=== PATIENT | female | born 1995 | race Caucasian/White ===

== ENCOUNTER 2020-07-01 17:04 | Outpatient (CLI) | payer BC, SELFPAY ==
[2020-07-01 17:55] LABS: Beta HCG Quantitative < 2.39 mIU/ML
== END 2020-07-01 17:05 | disposition home or self-care (01) ==
LOC: ANHLAB 17:09
PROVIDERS: PCP Family Medicine; Visit Provider Obstetrics & Gynecology
DX: O20.0 Threatened abortion (principal); Z3A.00 Weeks of gestation of pregnancy not specified
CPT/HCPCS: 36415; 84702; 85461

== ENCOUNTER 2020-12-12 09:01 | Outpatient (CLI) | payer BC, SELFPAY ==
--- NOTE | ~2020-12-12 | US_ITS ---
EXAMINATION: US retroperitoneal comp EXAM DATE: 12/12/2020 09:40 INDICATION: Flank pain, hx of urinary calculi. UTI symptoms Flank pain in . TECHNIQUE: Multiple grayscale and Doppler images of the kidneys were obtained (by a technologist who performed the scan) and subsequently reviewed. There is no prior study for comparison. FINDINGS: Right kidney: There is normal contour and echogenicity. It measures 10.9 x 5.2 x 4.7 centimeters. Hy perechoic focus was measured in the hilar region at 9 mm, but there is no posterior shadowing to conf irm that this is a stone, could just be echogenic renal perihilar fat There is no hydronephrosis. Left kidney: There is normal contour and echogenicity. It measures 10.7 x 5.3 x 6.5 centimeters. Foc us with similar imaging characteristics to the contralateral findings measuring 4 mm. There is no h ydronephrosis. Bladder unremarkable. IMPRESSION: 1. Nonobstructing stone in each kidney versus echogenic perihilar fat. 2. No hydronephrosis. Reviewed, dictated and finalized at location A.
== END 2020-12-12 09:02 | disposition home or self-care (01) ==
LOC: ANHIMG 09:05
PROVIDERS: PCP Family Medicine; Visit Provider Advanced Practice Midwife
DX: R10.9 Unspecified abdominal pain (principal); N20.0 Calculus of kidney
CPT/HCPCS: 76770

== ENCOUNTER 2021-02-18 11:46 | Outpatient (CLI) | payer BC, SELFPAY ==
[2021-02-18 12:16] VITALS: BP 153/83; PULSE 87
[2021-02-18 12:25] LABS: Basophils Percent Auto 0.3 % (0.2-1.2); Eosinophils Absolute Auto 0.2 K/mm3 (0-0.3); Eosinophils Percent Auto 1.3 % (0-4.4); Hematocrit 26.9 % (37.0-47.0); Hemoglobin 8.8 g/dL (12.0-15.0); Immature Granulocyte Absolute 0.15 K/mm3 (0.00-0.031); Immature Granulocyte Percent A 1.3 % (0-0.5); Lymphocytes Absolute Auto 1.45 K/mm3 (0.9-3.2); Lymphocytes Percent Auto 12.3 % (18.3-44.2); Mean Corpuscular HGB Conc 32.7 g/dl (32-36); Mean Corpuscular Hemoglobin 26.5 pg (26-34); Mean Platelet Volume 9.5 fl (7.4-10.4); Monocytes Absolute Auto 0.6 K/mm3 (0.1-0.6); Monocytes Percent Auto 5.1 % (2.6-8.5); Neutrophils Absolute Auto 9.4 K/mm3 (1.3-6.7); Neutrophils Percent Auto 79.7 % (45.5-73.1); Platelet Count Result 154 k/mm3 (150-375); Red Blood Count 3.32 M/mm3 (4.2-5.4); Red Cell Distribution Width 14.5 % (11.5-14.5); White Blood Count 11.8 K/mm3 (4.5-10.0)
[2021-02-18 12:31] VITALS: BP 152/79; PULSE 84
[2021-02-18 12:31] LABS: Add Urine Microscopic? YES; Appearance Urine Cloudy (Clear); Bacteria Urine 1+ /hpf; Bilirubin Urine Negative (Negative); Blood Urine 1+ (Negative); Color Urine Yellow (Yellow); Glucose Urine UA Negative (Negative); Ketones Urine Negative (Negative); Leukocyte Esterase Ur 3+ LEU/UL (NEGATIVE); Mucus Urine Rare /lpf; Nitrate Urine Negative (Negative); Protein Urine Negative (Negative); Squamous Epithelial Cell Urine Many /hpf (Few); Urobilinogen Urine Negative mg/dL (<2.0); WBC Urine 51-75 /hpf (0-3)
[2021-02-18 12:38] LABS: Alanine Aminotransferase 15 U/L (4-35); Albumin Level 3.5 g/dL (3.5-5.1); Alkaline Phosphatase 103 U/L (38-126); Anion Gap 9 mmol/L (8-16); Aspartate Amino Transferase 20 U/L (14-36); Bilirubin,Total 0.3 mg/dL (0.2-1.3); Blood Urea Nitrogen 6 mg/dL (7-17); Calcium 9.2 mg/dL (8.4-10.2); Carbon Dioxide 20 mmol/L (22-30); Chloride 108 mmol/L (98-107); Estimated Glomerular Filt Rate > 60; Glucose 86 mg/dL (65-110); Potassium 3.6 mmol/L (3.4-5.0); Sodium 137 mmol/L (137-145); Uric Acid 4.8 mg/dL (2.5-7.5)
[2021-02-18 12:44] LABS: Creatinine Urine 22.6 mg/dL; Total Protein Urine Random 16 mg/dL; Ur Ttl Prot Creatinine Ratio 0.71 mg/mg (0-0.20)
[2021-02-18 12:46] VITALS: BP 144/77; PULSE 83
[2021-02-18 12:53] LABS: Specific Grav Ur 1.002 (1.001-1.035)
--- NOTE | 2021-02-18 13:21 | PC.NURSE ---
1256- Spoke with Dr. James, NST, BPs' and labs reviewed. Orders to discharge patient home with 24 hour urine. Modified bed rest until Dr. James speaks to her regarding results.
== END 2021-02-18 13:30 | disposition home or self-care (01) ==
LOC: ANHOBOP 11:51 → ANHOBPP 11:52
PROVIDERS: PCP Family Medicine; Visit Provider Obstetrics & Gynecology
DX: O13.3 Gestational [pregnancy-induced] hypertension without significant proteinuria, third trimester (principal); Z3A.33 33 weeks gestation of pregnancy
CPT/HCPCS: 36415; 59025; 80053; 81001; 82570; 84156; 84550; 85025; 87086; 99199

== ENCOUNTER 2021-02-19 13:26 | Outpatient (NON) | payer BC, SELFPAY ==
[2021-02-19 13:32] VITALS: BMI 42.3
[2021-02-19 14:52] LABS: Collection Time Urine 24 HOURS
[2021-02-19 14:53] LABS: Total Volume 24 Hour Urine 2500 ml
[2021-02-19 14:54] LABS: Patient Weight 254 Lbs
[2021-02-19 15:09] LABS: Creatinine Clearance Urine 111.3 ml/min (75-125); Creatinine Urine 64.7 mg/dL; Total Protein Urine 24 Hr 375 mg/24hr (28-141); Total Protein Urine Random 15 mg/dL
== END 2021-02-19 13:27 | disposition home or self-care (01) ==
LOC: ANHOBOP 13:28
PROVIDERS: PCP Family Medicine; Visit Provider Obstetrics & Gynecology
DX: O13.9 Gestational [pregnancy-induced] hypertension without significant proteinuria, unspecified trimester (principal)
CPT/HCPCS: 81050; 82575; 84156

== ENCOUNTER 2021-02-21 14:51 | Outpatient (RCR) | payer BC, SELFPAY ==
[2021-02-20] MEDS: BETAMETHASONE SOD PHOS/ACETATE 30 MG/5 ML VIAL 12 MG IM (14:48)
[2021-02-21] MEDS: BETAMETHASONE SOD PHOS/ACETATE 30 MG/5 ML VIAL 12 MG IM (14:59)
== END 2021-02-21 15:00 | disposition home or self-care (01) ==
LOC: ANHOBOP 14:51
PROVIDERS: PCP Family Medicine; Visit Provider Obstetrics & Gynecology
DX: O16.9 Unspecified maternal hypertension, unspecified trimester (principal); Z3A.00 Weeks of gestation of pregnancy not specified
CPT/HCPCS: 96372; J0702

== ENCOUNTER 2021-02-21 14:51 | Outpatient (CLI) | payer BC, SELFPAY ==
--- NOTE | 2021-02-21 15:28 | PC.NURSE ---
Dr. James informed when pt came in for her 2nd Celestone injection she informed me she has had a headache since 1245 today that she took Tylenol 1 gm po at 1315 for with no improvement in headache- pt describes it as a dull ache that she rates as a 4-5 out of 10. Pt denies visual disturbance, feels some intermittent epigastric tenderness- but she has felt that during the last trimester. DTR's 2+ and no clonus. 1+ pitting edema in lower legs. Initial BP was 144/78 and repeat was 135/62. Discussed pt had labs on 02/18/21. Order received for NST and to give Fioricet. Pt may go home if the Fioricet helps her headache.
[2021-02-21 15:30] VITALS: BP 131/68; PULSE 88
[2021-02-21 15:45] VITALS: BP 130/72; BP 144/78; PULSE 102; PULSE 89; TEMP 37
[2021-02-21] MEDS: ACETAMINOPHEN/BUTALBITAL/CAFFEINE 325-50-40 MG TABLET (FIORICET) 1 TAB PO (15:55)
[2021-02-21 16:01] VITALS: BP 126/54; PULSE 79
[2021-02-21 16:15] VITALS: BP 129/61; PULSE 86
[2021-02-21 16:30] VITALS: BP 129/61; PULSE 84
== END 2021-02-21 16:48 | disposition home or self-care (01) ==
LOC: ANHOBOP 15:40 → ANHLDR 15:41
PROVIDERS: PCP Family Medicine; Visit Provider Obstetrics & Gynecology
DX: R51.9 Headache, unspecified (principal); Z20.822 Contact with and (suspected) exposure to COVID-19
CPT/HCPCS: 59025; 99199; A9270

== ENCOUNTER 2021-02-24 16:26 | Observation (INO) | payer BC, SELFPAY ==
[2021-02-24] VITALS (15 sets, daily range): BP systolic 119–146; BP diastolic 61–73; PULSE 67–80; RESP 16–18; TEMP 36.2–36.6; BMI 44.6
--- NOTE | 2021-02-24 17:16 | OBADM ---
This patient, Carmen Nguyễn, admitted to the OB room OB Post 115 for observation. Patient/family oriented to hospital policies and general routines including ID bracelet, bed and alarms, visiting hours, pain management, procedures, bathroom and other care routines, personal items, smoking policy, room service/diet, and visiting hours. Patient/Family are encouraged to report perceived risks to care and to ask questions if they do not understand what they are told or what they should do.
[2021-02-24 17:22] LABS: Basophils Percent Auto 0.2 % (0.2-1.2); Eosinophils Absolute Auto 0.1 K/mm3 (0-0.3); Eosinophils Percent Auto 0.6 % (0-4.4); Hematocrit 24.6 % (37.0-47.0); Immature Granulocyte Absolute 0.24 K/mm3 (0.00-0.031); Immature Granulocyte Percent A 1.8 % (0-0.5); Lymphocytes Absolute Auto 1.94 K/mm3 (0.9-3.2); Lymphocytes Percent Auto 14.7 % (18.3-44.2); Mean Corpuscular HGB Conc 32.5 g/dl (32-36); Mean Corpuscular Volume 83.1 fl (80-100); Mean Platelet Volume 10.6 fl (7.4-10.4); Monocytes Percent Auto 7.8 % (2.6-8.5); Neutrophils Absolute Auto 9.9 K/mm3 (1.3-6.7); Neutrophils Percent Auto 74.9 % (45.5-73.1); Nucleated Red Blood Cells Perc 0.3 % (0.0-0.2); Platelet Count Result 167 k/mm3 (150-375); Red Blood Count 2.96 M/mm3 (4.2-5.4); Red Cell Distribution Width 15.4 % (11.5-14.5); White Blood Count 13.2 K/mm3 (4.5-10.0)
[2021-02-24 17:24] LABS: Add Urine Microscopic? YES; Appearance Urine Cloudy (Clear); Bacteria Urine Trace /hpf; Bilirubin Urine Negative (Negative); Blood Urine 1+ (Negative); Color Urine Straw (Yellow); Glucose Urine UA Negative (Negative); Ketones Urine Negative (Negative); Leukocyte Esterase Ur 3+ LEU/UL (NEGATIVE); Mucus Urine Rare /lpf; Nitrate Urine Negative (Negative); Protein Urine Negative (Negative); Squamous Epithelial Cell Urine Many /hpf (Few); Urobilinogen Urine Negative mg/dL (<2.0); WBC Urine 51-75 /hpf (0-3)
[2021-02-24 17:26] LABS: Alanine Aminotransferase 25 U/L (4-35); Albumin Level 3.2 g/dL (3.5-5.1); Alkaline Phosphatase 87 U/L (38-126); Anion Gap 5 mmol/L (8-16); Aspartate Amino Transferase 25 U/L (14-36); Bilirubin,Total 0.2 mg/dL (0.2-1.3); Blood Urea Nitrogen 9 mg/dL (7-17); Calcium 9.2 mg/dL (8.4-10.2); Carbon Dioxide 23 mmol/L (22-30); Chloride 109 mmol/L (98-107); Estimated CRCL calculation 103 ml/min; Estimated Glomerular Filt Rate > 60; Glucose 89 mg/dL (65-110); Potassium 3.7 mmol/L (3.4-5.0); Sodium 137 mmol/L (137-145); Uric Acid 5.6 mg/dL (2.5-7.5)
[2021-02-24 17:27] LABS: Specific Grav Ur 1.002 (1.001-1.035)
[2021-02-24 17:41] LABS: Creatinine Urine 16.7 mg/dL; Total Protein Urine Random 19 mg/dL; Ur Ttl Prot Creatinine Ratio 1.14 mg/mg (0-0.20)
[2021-02-24] MEDS: ACETAMINOPHEN 500 MG TABLET 1000 MG PO (18:15)
--- NOTE | 2021-02-28 09:25 | PM.OBTRLD ---
OB - Triage/Final Diagnosis Visit Information Comments/Additional reasons for admission: I have assessed the risk for this patient, Carmen Nguyễn, and determined that she would benefit from observation care. Evaluation Laboratory results: Laboratory Tests 02/24/21 02/24/21 02/24/21 17:00 17:00 17:00 WBC 13.2 H RBC 2.96 L Hgb 8.0 L Hct 24.6 L MCV 83.1 MCH 27.0 MCHC 32.5 RDW 15.4 H Plt Count 167 MPV 10.6 H Immature Gran % (Auto) 1.8 H Neut % (Auto) 74.9 H Lymph % (Auto) 14.7 L [place] % (Auto) 7.8 Eos % (Auto) 0.6 Baso % (Auto) 0.2 Lymph # (Auto) 1.94 [place] # (Auto) 1.0 H Eos # (Auto) 0.1 Baso # (Auto) 0.0 Abs Immat Gran (auto) 0.24 H Absolute Neuts (auto) 9.9 H Absolute Nucleated RBC 0.0 Nucleated RBC % 0.3 H Sodium Potassium Chloride Carbon Dioxide Anion Gap BUN Creatinine Estim Creat Clear Calc Estimated GFR Glucose Uric Acid Calcium Total Bilirubin AST ALT Alkaline Phosphatase Total Protein Albumin Urine Color Straw Urine Appearance Cloudy H Urine pH 7.0 Ur Specific [place] 1.002 Urine Protein Negative Urine Glucose (UA) Negative Urine Ketones Negative Ur Blood (Man) 1+ H Urine Nitrate Negative Urine Bilirubin Negative Urine Urobilinogen Negative Ur Leukocyte Esterase 3+ H Urine RBC 3-5 H Urine WBC 51-75 H Ur Squamous Epith Cells Many H Urine Bacteria Trace Urine Mucus Rare U Random Total Protein 19 Urine Creatinine 16.7 Protein/Creat Ratio 2 1.14 H 02/24/21 17:00 WBC RBC Hgb Hct MCV MCH MCHC RDW Plt Count MPV Immature Gran % (Auto) Neut % (Auto) Lymph % (Auto) [place] % (Auto) Eos % (Auto) Baso % (Auto) Lymph # (Auto) [place] # (Auto) Eos # (Auto) Baso # (Auto) Abs Immat Gran (auto) Absolute Neuts (auto) Absolute Nucleated RBC Nucleated RBC % Sodium 137 Potassium 3.7 Chloride 109 H Carbon Dioxide 23 Anion Gap 5 L BUN 9 Creatinine 0.90 Estim Creat Clear Calc 103 Estimated GFR > 60 Glucose 89 Uric Acid 5.6 Calcium 9.2 Total Bilirubin 0.2 AST 25 ALT 25 Alkaline Phosphatase 87 Total Protein 6.0 L Albumin 3.2 L Urine Color Urine Appearance Urine pH Ur Specific [place] Urine Protein Urine Glucose (UA) Urine Ketones Ur Blood (Man) Urine Nitrate Urine Bilirubin Urine Urobilinogen Ur Leukocyte Esterase Urine RBC Urine WBC Ur Squamous Epith Cells Urine Bacteria Urine Mucus U Random Total Protein Urine Creatinine Protein/Creat Ratio 2 Final Diagnosis (1) Preeclampsia: Code(s): O14.90 - Unspecified pre-eclampsia, unspecified trimester Status: Acute
== END 2021-02-24 22:09 | disposition home or self-care (01) ==
PROVIDERS: Admitting Provider Obstetrics & Gynecology; PCP Family Medicine; Visit Provider Obstetrics & Gynecology
DX: O14.90 Unspecified pre-eclampsia, unspecified trimester (principal); Z3A.00 Weeks of gestation of pregnancy not specified
CPT/HCPCS: 36415; 80053; 81001; 82570; 84156; 84550; 85025; 87086; A9270; G0378; G0379

== ENCOUNTER 2021-02-27 18:08 | Observation (INO) | payer BC, SELFPAY ==
[2021-02-27] VITALS (8 sets, daily range): BP systolic 99–140; BP diastolic 62–88; PULSE 85–98
[2021-02-27 17:04] LABS: Basophils Percent Auto 0.2 % (0.2-1.2); Eosinophils Absolute Auto 0.1 K/mm3 (0-0.3); Hematocrit 28.4 % (37.0-47.0); Hemoglobin 8.9 g/dL (12.0-15.0); Immature Granulocyte Absolute 0.14 K/mm3 (0.00-0.031); Immature Granulocyte Percent A 1.1 % (0-0.5); Lymphocytes Absolute Auto 1.87 K/mm3 (0.9-3.2); Lymphocytes Percent Auto 14.9 % (18.3-44.2); Mean Corpuscular HGB Conc 31.3 g/dl (32-36); Mean Platelet Volume 9.9 fl (7.4-10.4); Monocytes Absolute Auto 0.8 K/mm3 (0.1-0.6); Monocytes Percent Auto 6.2 % (2.6-8.5); Neutrophils Absolute Auto 9.6 K/mm3 (1.3-6.7); Neutrophils Percent Auto 76.6 % (45.5-73.1); Platelet Count Result 213 k/mm3 (150-375); Red Blood Count 3.42 M/mm3 (4.2-5.4); Red Cell Distribution Width 15.7 % (11.5-14.5); White Blood Count 12.6 K/mm3 (4.5-10.0)
[2021-02-27 17:12] LABS: Add Urine Microscopic? YES; Appearance Urine Clear (Clear); Bacteria Urine Trace /hpf; Bilirubin Urine Negative (Negative); Blood Urine Negative (Negative); Color Urine Straw (Yellow); Glucose Urine UA Negative (Negative); Ketones Urine Negative (Negative); Leukocyte Esterase Ur 3+ LEU/UL (NEGATIVE); Nitrate Urine Negative (Negative); Protein Urine Negative (Negative); RBC Urine 0-2 /hpf (0-2); Specific Grav Ur 1.006 (1.001-1.035); Squamous Epithelial Cell Urine Few /hpf (Few); Urobilinogen Urine Negative mg/dL (<2.0); WBC Urine 21-30 /hpf (0-3)
[2021-02-27 17:21] LABS: Alanine Aminotransferase 19 U/L (4-35); Albumin Level 3.6 g/dL (3.5-5.1); Alkaline Phosphatase 99 U/L (38-126); Anion Gap 8 mmol/L (8-16); Aspartate Amino Transferase 19 U/L (14-36); Bilirubin,Total 0.2 mg/dL (0.2-1.3); Blood Urea Nitrogen 6 mg/dL (7-17); Calcium 9.2 mg/dL (8.4-10.2); Carbon Dioxide 22 mmol/L (22-30); Chloride 106 mmol/L (98-107); Estimated Glomerular Filt Rate > 60; Glucose 92 mg/dL (65-110); Potassium 3.6 mmol/L (3.4-5.0); Sodium 136 mmol/L (137-145); Uric Acid 5.2 mg/dL (2.5-7.5)
[2021-02-27 18:04] LABS: Creatinine Urine 29.9 mg/dL; Total Protein Urine Random 17 mg/dL; Ur Ttl Prot Creatinine Ratio 0.57 mg/mg (0-0.20)
[2021-02-28] VITALS (10 sets, daily range): BP systolic 116–144; BP diastolic 63–95; PULSE 85–115; RESP 16–20; TEMP 36–36.7
--- NOTE | 2021-02-28 08:15 | PM.IMHP ---
H&P: HPI History of Present Illness Date/Time: 02/28/21 08:15 Pt here for PIH evaluation. BP elevated in the office. No symptoms. Chief Complaint: Elevated blood pressure. Review of Systems Review of Systems: All systems reviewed & are unremarkable except as noted in HPI and below Constitutional: Constitutional: Reports as per HPI and Reports no additional constitutional complaints Eyes: Eyes: Reports as per HPI ENT: Reports system reviewed and no additional complaints, except as documented Cardiovascular: Cardiovascular: Reports as per HPI Respiratory: Respiratory: Reports as per HPI Gastrointestinal: Gastrointestinal: Reports as per HPI Genitourinary: Genitourinary: Reports no additional female genitourinary complaints Musculoskeletal: Musculoskeletal: Reports no additional musculoskeletal complaints Integumentary/Breasts: Skin/Breast: Reports system reviewed and no additional complaints, except as docu Neurologic: Reports system reviewed and no additional complaints, except as documented Psychiatric: Psychiatric: Reports no additional psychiatric complaints Endocrine: Endocrine: Reports no additional endocrine complaints Hematologic/Lymphatic: Hematologic/Lymphatic: Reports no additional hematologic/lymphatic complaints Allergic/Immunologic: Allergic/Immunologic: Reports no additional allergic/immunologic complaints Meds Home Medications and Allergies Home Medications Medication Instructions Recorded Confirmed Type albuterol [Ventolin] 90 mcg INHALATION PRN PRN 02/27/21 02/27/21 History mometasone [Asmanex Twisthaler] 220 mcg INHALATION DAILY 02/27/21 02/27/21 History montelukast 10 mg PO DAILY 02/27/21 02/27/21 History Allergies Allergy/AdvReac Type Severity Reaction Status Date / Time No Known Allergies Allergy Verified 02/20/21 14:37 Vital Signs Vital Signs - 24 hr 02/27/21 16:49 02/27/21 17:00 02/27/21 17:17 Temperature Pulse Rate 94 93 98 Respiratory Rate Blood Pressure 139/86 132/88 99/80 L 02/27/21 17:30 02/27/21 17:46 02/27/21 18:01 Temperature Pulse Rate 89 87 91 Respiratory Rate Blood Pressure 119/76 128/62 122/66 02/27/21 18:16 02/27/21 21:03 02/28/21 01:22 Temperature Pulse Rate 85 85 85 Respiratory Rate Blood Pressure 122/65 140/76 134/76 02/28/21 06:15 02/28/21 06:16 Temperature 96.8 F L Pulse Rate 94 Respiratory Rate 20 Blood Pressure 138/63 Exam Const: General: cooperative and healthy appearing Orientation/consciousness: oriented to person, oriented to place, oriented to time and patient oriented x3 Limitations: no limitations HENMT: Head: normal to inspection Ears: hearing grossly normal bilaterally General nose exam: Normal external nose present Face and sinus: normal facial exam Mouth: Yes Normal oral and palatal mucosa present Teeth and gingiva: dentition normal Throat: posterior oropharynx normal Eyes: General: appearance normal, both eyes and all related structures Neck: Neck: normal visual inspection Thyroid: thyroid normal Chest: Chest palpation & inspection: normal inspection of the chest Resp: Effort & Inspection: normal respiratory effort Auscultation: clear to auscultation bilaterally Cardio: Rate: regular rate Rhythm: regular rhythm GI: Inspection: normal to inspection : General: Yes bimanual renal exam normal bilaterally Skin: General skin exam: normal color and no rashes or lesions noted Neuro: General: oriented to person, oriented to place, oriented to time and patient oriented x3 Extrem: General: normal to inspection Psych: Mental Status: mental status grossly normal H&P: Results Labs Labs: Short CBC 02/27/21 Range/Units 16:44 WBC 12.6 H (4.5-10.0) K/mm3 Hgb 8.9 L (12.0-15.0) g/dL Hct 28.4 L (37.0-47.0) % Plt Count 213 (150-375) k/mm3 [facility] 02/27/21 16:44 Sodium 136 L Potassium 3.6 Chloride 106 Carbon Dioxide 22 BUN 6 L Creatinine
[2021-02-28 09:18] LABS: Basophils Absolute Auto 0.1 K/mm3 (0.0-0.1); Basophils Percent Auto 0.4 % (0.2-1.2); Eosinophils Absolute Auto 0.1 K/mm3 (0-0.3); Eosinophils Percent Auto 1.2 % (0-4.4); Hematocrit 28.2 % (37.0-47.0); Hemoglobin 8.9 g/dL (12.0-15.0); Immature Granulocyte Absolute 0.15 K/mm3 (0.00-0.031); Immature Granulocyte Percent A 1.3 % (0-0.5); Lymphocytes Absolute Auto 1.98 K/mm3 (0.9-3.2); Lymphocytes Percent Auto 16.9 % (18.3-44.2); Mean Corpuscular HGB Conc 31.6 g/dl (32-36); Mean Corpuscular Hemoglobin 26.6 pg (26-34); Mean Corpuscular Volume 84.2 fl (80-100); Mean Platelet Volume 9.7 fl (7.4-10.4); Monocytes Absolute Auto 0.7 K/mm3 (0.1-0.6); Monocytes Percent Auto 5.9 % (2.6-8.5); Neutrophils Absolute Auto 8.7 K/mm3 (1.3-6.7); Neutrophils Percent Auto 74.3 % (45.5-73.1); Platelet Count Result 185 k/mm3 (150-375); Red Blood Count 3.35 M/mm3 (4.2-5.4); White Blood Count 11.7 K/mm3 (4.5-10.0)
[2021-02-28 09:33] LABS: Alanine Aminotransferase 17 U/L (4-35); Albumin Level 3.4 g/dL (3.5-5.1); Alkaline Phosphatase 98 U/L (38-126); Anion Gap 7 mmol/L (8-16); Aspartate Amino Transferase 18 U/L (14-36); Bilirubin,Total 0.2 mg/dL (0.2-1.3); Blood Urea Nitrogen 6 mg/dL (7-17); Calcium 9.1 mg/dL (8.4-10.2); Carbon Dioxide 22 mmol/L (22-30); Chloride 107 mmol/L (98-107); Estimated Glomerular Filt Rate > 60; Glucose 85 mg/dL (65-110); Potassium 3.6 mmol/L (3.4-5.0); Sodium 136 mmol/L (137-145)
[2021-02-28 20:08] LABS: Collection Time Urine 24 HOURS
[2021-02-28 20:15] LABS: Total Volume 24 Hour Urine 4350 ml
[2021-02-28 20:49] LABS: Creatinine Urine 42.2 mg/dL; Total Protein Urine Random 14 mg/dL
[2021-02-28 20:53] LABS: Total Protein Urine 24 Hr 609 mg/24hr (28-141)
[2021-02-28 22:38] LABS: Patient Weight 266 Lbs
[2021-02-28 22:39] LABS: Creatinine Clearance Urine 159.8 ml/min (75-125)
--- NOTE | 2021-03-17 07:43 | PM.OBTRLD ---
OB - Triage/Final Diagnosis Visit Information Comments/Additional reasons for admission: I have assessed the risk for this patient, Carmen Nguyễn, and determined that she would benefit from observation care. Evaluation Laboratory results: Laboratory Tests 02/27/21 02/27/21 02/27/21 16:44 16:44 16:44 WBC 12.6 H RBC 3.42 L Hgb 8.9 L Hct 28.4 L MCV 83.0 MCH 26.0 MCHC 31.3 L RDW 15.7 H Plt Count 213 MPV 9.9 Immature Gran % (Auto) 1.1 H Neut % (Auto) 76.6 H Lymph % (Auto) 14.9 L [place] % (Auto) 6.2 Eos % (Auto) 1.0 Baso % (Auto) 0.2 Lymph # (Auto) 1.87 [place] # (Auto) 0.8 H Eos # (Auto) 0.1 Baso # (Auto) 0.0 Abs Immat Gran (auto) 0.14 H Absolute Neuts (auto) 9.6 H Absolute Nucleated RBC 0.0 Nucleated RBC % 0.0 Sodium 136 L Potassium 3.6 Chloride 106 Carbon Dioxide 22 Anion Gap 8 BUN 6 L Creatinine 0.70 Estim Creat Clear Calc Not Reportable Estimated GFR > 60 Glucose 92 Uric Acid 5.2 Calcium 9.2 Total Bilirubin 0.2 AST 19 ALT 19 Alkaline Phosphatase 99 Total Protein 6.0 L Albumin 3.6 Urine Color Urine Appearance Urine pH Ur Specific [place] Urine Protein Urine Glucose (UA) Urine Ketones Ur Blood (Man) Urine Nitrate Urine Bilirubin Urine Urobilinogen Ur Leukocyte Esterase Urine RBC Urine WBC Ur Squamous Epith Cells Urine Bacteria U Random Total Protein 17 Ur 24 Hour Volume Urine Creatinine 29.9 Creatinine Clearance Ur Total Protein 24 Hr Protein/Creat Ratio 2 0.57 H 02/27/21 02/28/21 02/28/21 16:44 08:49 08:49 WBC 11.7 H RBC 3.35 L Hgb 8.9 L Hct 28.2 L MCV 84.2 MCH 26.6 MCHC 31.6 L RDW 16.0 H Plt Count 185 MPV 9.7 Immature Gran % (Auto) 1.3 H Neut % (Auto) 74.3 H Lymph % (Auto) 16.9 L [place] % (Auto) 5.9 Eos % (Auto) 1.2 Baso % (Auto) 0.4 Lymph # (Auto) 1.98 [place] # (Auto) 0.7 H Eos # (Auto) 0.1 Baso # (Auto) 0.1 Abs Immat Gran (auto) 0.15 H Absolute Neuts (auto) 8.7 H Absolute Nucleated RBC 0.0 Nucleated RBC % 0.0 Sodium 136 L Potassium 3.6 Chloride 107 Carbon Dioxide 22 Anion Gap 7 L BUN 6 L Creatinine 0.70 Estim Creat Clear Calc Not Reportable Estimated GFR > 60 Glucose 85 Uric Acid 5.0 Calcium 9.1 Total Bilirubin 0.2 AST 18 ALT 17 Alkaline Phosphatase 98 Total Protein 6.0 L Albumin 3.4 L Urine Color Straw Urine Appearance Clear Urine pH 7.0 Ur Specific [place] 1.006 Urine Protein Negative Urine Glucose (UA) Negative Urine Ketones Negative Ur Blood (Man) Negative Urine Nitrate Negative Urine Bilirubin Negative Urine Urobilinogen Negative Ur Leukocyte Esterase 3+ H Urine RBC 0-2 Urine WBC 21-30 H Ur Squamous Epith Cells Few Urine Bacteria Trace U Random Total Protein Ur 24 Hour Volume Urine Creatinine Creatinine Clearance Ur Total Protein 24 Hr Protein/Creat Ratio 2 02/28/21 17:11 WBC RBC Hgb Hct MCV MCH MCHC RDW Plt Count MPV Immature Gran % (Auto) Neut % (Auto) Lymph % (Auto) [place] % (Auto) Eos % (Auto) Baso % (Auto) Lymph # (Auto) [place] # (Auto) Eos # (Auto) Baso # (Auto) Abs Immat Gran (auto) Absolute Neuts (auto) Absolute Nucleated RBC Nucleated RBC % Sodium Potassium Chloride Carbon Dioxide Anion Gap BUN Creatinine Estim Creat Clear Calc Estimated GFR Glucose Uric Acid Calcium Total Bilirubin AST ALT Alkaline Phosphatase Total Protein Albumin Urine Color Urine Appearance Urine pH Ur Specific [place] Urine Protein Urine Glucose (UA) Urine Ketones Ur Blood (Man) Urine Nitrate Urine Bilirubin Urine Urobilinogen Ur Leukocyte Esterase Urine RBC Urine WBC Ur Squamous Epith Cells Urine Bacte
== END 2021-02-28 18:30 | disposition home or self-care (01) ==
LOC: ANHOBOP 18:19 → ANHOBPP 18:19
PROVIDERS: Advanced Practice Midwife; Admitting Provider Obstetrics & Gynecology; PCP Family Medicine; Visit Provider Obstetrics & Gynecology
DX: O13.9 Gestational [pregnancy-induced] hypertension without significant proteinuria, unspecified trimester (principal); Z3A.00 Weeks of gestation of pregnancy not specified
CPT/HCPCS: 36415; 80053; 81001; 81050; 82570; 82575; 84156; 84550; 85025; 87086; G0378; G0379

== ENCOUNTER 2021-03-17 00:01 | Inpatient (IN) | payer BC, SELFPAY ==
[2021-03-17] VITALS (59 sets, daily range): BP systolic 119–162; BP diastolic 60–113; PULSE 85–111; TEMP 36.7–37.2
--- OUTSIDE RECORDS SUMMARY | 2021-03-17 00:06 | XMS_ITS ---
:1995 Author Organization [facility] Address [address] [place] [address] Phone Care Team Providers Name Role Phone Bobbi MOLINA MD Primary Care Provider [phone] ASIYA KANG, Chloe Unavailable [phone] Ellis WEINBERG Unavailable [phone] Problems Includes: Active, inactive, and resolved Problems All Visits Onset Date - Resolved Date - Provider Condition St atus Time Time Asthma 09/04/2009 - SCOOTER PALMER Active 12:00AM [facility] Nephrolithiasis 09/04/2009 - SCOOTER PALMER Active 12:00AM [facility] Note: h/o kidney stones Plan of Treatment Findings Encounter Date Ordered Clinical summary provided to [place] PT with 06/10/2020 patient SCOOTER PALMER NP-BC Ordered Clinical summary provided to NEW BREAD WRAPPING MACHINE FEEDER EXAM with SCOOTER PALMER 05/02/2018 patient NP-BC Ordered Clinical summary provided to BREAD WRAPPING MACHINE FEEDER EXAM with SCOOTER FABIAN NP-BC 03/11/2015 patient Ordered Clinical summary provided to BREAD WRAPPING MACHINE FEEDER EXAM with SCOOTER FABIAN NP-BC 01/22/2014 patient Ordered a urine culture PROBLEM VISIT with SCOOTER PALMER NP-BC Ordered urinalysis PROBLEM VISIT with SCOOTER PALMER 014 [facility] Ordered Clinical summary provided to BREAD WRAPPING MACHINE FEEDER EXAM with SCOOTER Parks
--- OUTSIDE RECORDS SUMMARY | 2021-03-17 00:07 | XMS_ITS | Encounter Summary ---
:1995 Author Care Team Providers Name Role Phone Demetrio Romero MD Primary Care Provider [phone] Reason for Visit None recorded. Assessment and Plan 1. Pre-eclampsia ? non-stress test Discussion Note: None recorded.Patient educational handouts: No information available. Plan of Care Reminders Provider Appointments None ? ? recorded. Lab None ? ? recorded. Referral None ? ? recorded. Procedures None ? ? recorded. Surgeries None ? ? recorded. Imaging 03/13/2021 [place] Non-stress Test Medications Name Start Date ? ? Acid Environmental Health Safety Manager (famotidine) 10 mg tablet ? Allergy (diphenhydramine) 25 mg capsule ? Asmanex Twisthaler 220 mcg/actuation(30 doses) breath activated inhalr ? INHALE 1 PUFF INTO THE LUNGS EVERY DAY IN THE EVENING cyclobenzaprine 5 mg tablet ? TAKE 1 TABLET BY MOUTH THREE TIMES DAILY NEEDED montelukast 10 mg tablet ? ondansetron 4 mg disintegrating tablet ? DISSOLVE 1 TABLET ON THE TONGUE THREE TIMES DAILY NEEDED ? Ventolin HFA 90 mcg/actuation aerosol inhaler ? INHALE 2 PUFFS BY MOUTH EVERY 6 HOURS NEEDED FOR W HEEZING Medications Administered None recorded. Vitals None recorded. Results Lab Results
--- OUTSIDE RECORDS SUMMARY | 2021-03-17 00:07 | XMS_ITS | Encounter Summary ---
:1995 Author Care Team Providers Name Role Phone Demetrio Romero MD Primary Care Provider [phone] Reason for Visit OB visit 36w3d Assessment and Plan Assessment Note Patient is ___weeks . Discu ssed plan. 1. Routine care Discussion Note: None recorded.Patient educational handouts: No information available. Plan of Care Reminders Provider Appointments None ? ? recorded. Lab None ? ? recorded. Referral None ? ? recorded. Procedures None ? ? recorded. Surgeries None ? ? recorded. Imaging None ? ? recorded. Medications Name Start Date ? ? Acid Didactic Program In Dietetics Director (famotidine) 10 mg tablet ? Allergy (diphenhydramine) [...] W HEEZING Medications Administered None recorded. Vitals Height Weight
--- OUTSIDE RECORDS SUMMARY | 2021-03-17 00:07 | XMS_ITS | Clinical Summary ---
:[address] 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 Problems Includes: Problems addressed during this encounter and other active Problems All Visits Onset Date - Resolved Date - Provider Condition St atus Time Time Asthma 09/04/2009 - SCOOTER PALMER Active 12:00AM [facility] Nephrolithiasis 09/04/2009 - SCOOTER PALMER Active 12:00AM [facility]- Note: h/o kidney stones Plan of Treatment No Plan of Treatment Recorded Assessments Includes: Assessments from this encounterNo Assessments Recorded Medical Equipment - Implanted Devices Includes: Current DevicesNo Medical Equipment Recorded Medications Includes: Medications discussed during this encounter and other current Medications Current Medications (continue as prescribed) Xyzal Allergy 24HR 5MG Oral Tablet 05/02/2018 Provider: Diagnosis: Ventolin HFA 108 (90 Base)MCG/ACT Inhalation Aerosol Solutio n 05/02/2018 Provider: Diagnosis:
--- OUTSIDE RECORDS SUMMARY | 2021-03-17 00:07 | XMS_ITS ---
Care Plan - [facility] Created on:March 17, 2021 Patient:DONAVAN BECKHAM Sex:Female :1995 Author Organization [facility] Address [address] [place] [address] Phone Care Team Providers Name Role Phone JESSE KANG, K Primary Care Provider [phone] ASIYA KANG, C Unavailable [phone] Ellis WEINBERG Unavailable [phone]
--- OUTSIDE RECORDS SUMMARY | 2021-03-17 00:07 | XMS_ITS | Encounter Summary ---
:1995 Author Care Team Providers Name Role Phone Demetrio Romero MD Primary Care Provider [phone] Reason for Visit None recorded. Assessment and Plan 1. Pre-eclampsia ? non-stress test Discussion Note: None recorded.Patient educational handouts: No information available. Plan of Care Reminders Provider Appointments None ? ? recorded. Lab None ? ? recorded. Referral None ? ? recorded. Procedures None ? ? recorded. Surgeries None ? ? recorded. Imaging 03/10/2021 [place] Non-stress Test Medications Name Start Date ? ? Acid Castables Worker (famotidine) 10 mg tablet ? Allergy (diphenhydramine) [...] W HEEZING Medications Administered None recorded. Vitals Blood Pressure 144/90 mm[Hg]
--- OUTSIDE RECORDS SUMMARY | 2021-03-17 00:07 | XMS_ITS | Encounter Summary ---
:1995 Author Care Team Providers Name Role Phone Demetrio Romero MD Primary Care Provider [phone] Reason for Visit OB visit 35w3d Assessment and Plan 1. Routine care Discussion Note: None recorded.Patient educational handouts: No information available. Plan of Care Reminders Provider Appointments None ? ? recorded. Lab None ? ? recorded. Referral None ? ? recorded. Procedures None ? ? recorded. Surgeries None ? ? recorded. Imaging None ? ? recorded. Medications Name Start Date ? ? Acid Edger Feeder (famotidine) 10 mg tablet ? Allergy (diphenhydramine) [...] W HEEZING Medications Administered None recorded. Vitals Weight Blood Pressure 256 lbs 131/85 mm[Hg] Results Lab R
--- OUTSIDE RECORDS SUMMARY | 2021-03-17 00:07 | XMS_ITS | Clinical Summary ---
:1995 Author Organization [facility] Address [address] [place] [address] Phone Care Team Providers Name Role Phone JESSE KANG, Bobbi Primary Care Provider [phone] ASIYA KANG, C Unavailable [phone] Ellis WEINBERG Unavailable [phone] Reason for Visit and Chief Complaint gynecologic annual exam - The Chief Complaint is: Annual Problems Includes: Problems addressed during this encounter and other active Problems All Visits Onset Date - Resolved Date - Provider Condition St atus Time Time Asthma 09/04/2009 - SCOOTER PALMER Active 12:00AM [facility] Nephrolithiasis 09/04/2009 - SCOOTER PALMER Active 12:00AM [facility] Note: h/o kidney stones Plan of Treatment - Clinical summary provided to patient Assessments Includes: Assessments from this encounter - NORMAL FEMALE EXAM Instructions Includes: Instructions from this encounter Instructions to patient Instructions for patient : Breast Self Exam discussed Lose weight Gardasil information given and series en couraged Series completed! Education and Decision Aids were provide d during visit for: Patient Education: Daily calcium and vit villanueva D Patient Education: weight bearing exerci se Medical Equipment - Implanted Devices Incl
--- OUTSIDE RECORDS SUMMARY | 2021-03-17 00:07 | XMS_ITS ---
:1995 Author Care Team Providers Name Role Phone NAUN MOLINA MD Primary Care Provider [phone] Allergies Code Code System Name Reaction Severity Status Onset NKDA ? Medications Name Status Start Date Stop Date ? ? Acid Acid Conditioning Worker (famotidine) 10 mg tablet Active ? Not available Allergy (diphenhydramine) 25 mg capsule Active ? Not available Asmanex Twisthaler 220 mcg/actuation(30 Active ? Not available doses) breath activated inhalr cephalexin 500 mg capsule Completed ? 2020 TAKE ONE CAPSULE BY MOUTH TWICE DAILY FOR 7 DAYS cyclobenzaprine 5 mg tablet Active ? Not available TAKE 1 TABLET BY MOUTH THREE TIMES DAILY NEEDED Flovent HFA 110 mcg/actuation aerosol inhaler Completed ? 07/30/2020 INL 2 PFS PO TWICE DAILY. RM WITH WATER AFTER USE. DO NOT SWALL OW hydrocodone 5 mg-acetaminophen 325 mg tablet Completed ? 07/30/2020 TAKE 1 TABLET BY MOUTH EVERY 6 HOURS NEEDED ID NOW COVID-19 Test Kit Completed ? 021 TEST DIRECTED montelukast 10 mg tablet Active ? Not neisha ilable nitrofurantoin Completed ? 12/09/2020 monohydrate/macrocrystals 100 mg capsule ondansetron 4 mg disintegrating tablet Active ? Not available DISSOLVE 1 TABLET ON THE TONGUE THREE TIMES DAILY NEEDED Active ? Not available SSD 1 % topical cream Completed ? 07/30/2020 AZAM AA BID OR WITH EACH DRESSING CHANGE
--- OUTSIDE RECORDS SUMMARY | 2021-03-17 00:07 | XMS_ITS | Clinical Summary ---
:1995 Author Organization [facility] Address [address] [place] [address] Phone Care Team Providers Name Role Phone Bobbi MOLINA MD Primary Care Provider [phone] ASIYA KANG, Chloe Unavailable [phone] Ellis WEINBERG Unavailable [phone] Reason for Visit and Chief Complaint gynecologic [...] Treatment - Clinical summary provided to patient Per new ASCCP guidelines, pap was deferr ed today. This was d/w pt. and pt. is agreeable to this plan. Assessments Includes: Assessments from this encounter - NORMAL FEMALE EXAM - Amelie albicans vulvovaginitis Instructions Includes: Instructions from this encounter Instructions to patient Instructions for patient : Breast Self Exam discussed Instructions for patient : Keep the are a around the vulva dry. Allow the area to have exposure to air. Avoid irritants s uch as fabric softeners and perfumed
--- OUTSIDE RECORDS SUMMARY | 2021-03-17 00:07 | XMS_ITS | Clinical Summary ---
:1995 Author Organization [facility] Address [address] [place] [address] Phone Care Team Providers Name Role Phone JESSE KANG, Bobbi Primary Care Provider [phone] ASIYA KANG, C Unavailable [phone] Ellis WEINBERG Unavailable [phone] Reason for Visit and Chief Complaint gynecologic annual exam - The Chief Complaint is: Annual-pt would like std testing Problems Includes: Problems addressed during this encounter and other active Problems All Visits Onset Date - Resolved Date - Provider Condition St atus Time Time Asthma 09/04/2009 - SCOOTER PALMER Active 12:00AM [facility] Nephrolithiasis 09/04/2009 - SCOOTER PALMER Active 12:00AM [facility]- Note: h/o kidney stones Plan of Treatment - Clinical summary provided to patient Assessments Includes: Assessments from this encounter - NORMAL FEMALE EXAM Instructions Includes: Instructions from this encounter Instructions to patient Instructions for patient : Breast Self Exam discussed Lose weight Safe sex counseling Gardasil information given and series en couraged Series completed! Education and Decision Aids were provide d during visit for: Patient Education: Daily calcium and vit villanueva D Patient Edu
--- OUTSIDE RECORDS SUMMARY | 2021-03-17 00:07 | XMS_ITS | Encounter Summary ---
:1995 Author Care Team Providers Name Role Phone Demetrio Romero MD Primary Care Provider [phone] Reason for Visit None recorded. Assessment and Plan 1. Maternal obesity complicating , childbirth and the puerperium, antepartum ? non-stress test Discussion Note: None recorded.Patient educational handouts: No information available. Plan of Care Reminders Provider Appointments None ? ? recorded. Lab None ? ? recorded. Referral None ? ? recorded. Procedures None ? ? recorded. Surgeries None ? ? recorded. Imaging 03/06/2021 [place] Non-stress Test Medications Name Start Date ? ? Acid Food Service Cashier (famotidine) 10 mg tablet ? Allergy (diphenhydramine) [...] HEEZING Medications Administered None recorded. Vitals None record
--- OUTSIDE RECORDS SUMMARY | 2021-03-17 00:08 | XMS_ITS | Encounter Summary ---
:1995 Author Care Team Providers Name Role Phone Demetrio Romero MD Primary Care Provider [phone] Reason for Visit OB visit OB [id number] EDC 04/07/2021 LMP 07/13/2020 Assessment and Plan Assessment Note Patient is _32weeks . Discu ssed plan. 1. Routine care Discussion Note: None recorded.Patient educational handouts: No information available. Plan of Care Reminders Provider Appointments None ? ? recorded. Lab None ? ? recorded. Referral None ? ? recorded. Procedures None ? ? recorded. Surgeries None ? ? recorded. Imaging None ? ? recorded. Medications Name Start Date ? ? Acid Mastic Floor Layer (famotidine) 10 mg tablet ? Allergy (diphenhydramine) [...]
--- OUTSIDE RECORDS SUMMARY | 2021-03-17 00:08 | XMS_ITS | Encounter Summary ---
:1995 Author Care Team Providers Name Role Phone Demetrio Romero MD Primary Care Provider [phone] Reason for Visit None recorded. Assessment and Plan 1. condition affecting obs tetrical care of mother ? US, obstetric, biophysical profile + non-stress test Discussion Note: None recorded.Patient educational handouts: No information available. Plan of Care Reminders Provider Appointments None recorded. ? ? Lab None recorded. ? ? Referral None recorded. ? ? Procedures None recorded. ? ? Surgeries None recorded. ? ? Imaging US, Obstetric, [facility] Biophysical Profile + 02/20/2021 Non-stress Test Medications Name Start Date ? ? Acid Sql Developer (famotidine) 10 mg tablet ? Allergy (diphenhydramine) [...]
--- OUTSIDE RECORDS SUMMARY | 2021-03-17 00:08 | XMS_ITS | Encounter Summary ---
:1995 Author Care Team Providers Name Role Phone Demetrio Romero MD Primary Care Provider [phone] Reason for Visit None recorded. Assessment and Plan 1. Pre-eclampsia ? non-stress test Discussion Note: None recorded.Patient educational handouts: No information available. Plan of Care Reminders Provider Appointments None ? ? recorded. Lab None ? ? recorded. Referral None ? ? recorded. Procedures None ? ? recorded. Surgeries None ? ? recorded. Imaging 02/20/2021 [place] Non-stress Test Medications Name Start Date ? ? Acid Log Chain Feeder (famotidine) 10 mg tablet ? Allergy [...] Medications Administered None recorded. Vitals Blood Pressure 152/86 mm[Hg]
--- OUTSIDE RECORDS SUMMARY | 2021-03-17 00:08 | XMS_ITS | Encounter Summary ---
:1995 Author Care Team Providers Name Role Phone Demetrio Romero MD Primary Care Provider [phone] Reason for Visit None recorded. Assessment and Plan 1. screening ? US, obstetric, follow-up Discussion Note: None recorded.Patient educational handouts: No information available. Plan of Care Reminders Provider Appointments None ? ? recorded. Lab None ? ? recorded. Referral None ? ? recorded. Procedures None ? ? recorded. Surgeries None ? ? recorded. Imaging US, 12/24/2020 [facility] [facility], Follow-up Medications Name Start Date ? ? Acid Orthopedic Shoes Salesperson (famotidine) 10 mg tablet ? Allergy (diphenhydramine) [...]
--- OUTSIDE RECORDS SUMMARY | 2021-03-17 00:08 | XMS_ITS | Encounter Summary ---
:1995 Author Care Team Providers Name Role Phone Demetrio Romero MD Primary Care Provider [phone] Reason for Visit None recorded. Assessment and Plan None recorded.Discussion Note: None recorded.Patient educational handouts: No information available. Plan of Care Reminders Provider Appointments None ? ? recorded. Lab None ? ? recorded. Referral None ? ? recorded. Procedures None ? ? recorded. Surgeries None ? ? recorded. Imaging None ? ? recorded. Medications Name Start Date ? ? Acid Senior Games Technician (famotidine) 10 mg tablet ? Allergy (diphenhydramine) [...] recorded. Vitals None recorded. Results Lab Results None recorded. Allergies Code Code System Name Reaction Severity Onset
--- OUTSIDE RECORDS SUMMARY | 2021-03-17 00:08 | XMS_ITS | Encounter Summary ---
:1995 Author Care Team Providers Name Role Phone Demetrio Romero MD Primary Care Provider [phone] Reason for Visit NST [id number] EDC 04/07/2021 for preeclamps ia Assessment and Plan 1. Pre-eclampsia ? non-stress test Discussion Note: None recorded.Patient educational handouts: No information available. Plan of Care Reminders Provider Appointments None ? ? recorded. Lab None ? ? recorded. Referral None ? ? recorded. Procedures None ? ? recorded. Surgeries None ? ? recorded. Imaging 03/03/2021 [place] Non-stress Test Medications Name Start Date ? ? Acid Aluminum Siding Mechanic (famotidine) 10 mg tablet ? Allergy (diphenhydramine) [...] Medications Administered None recorded. Vitals Height Weight BMI Blood Pressure
--- OUTSIDE RECORDS SUMMARY | 2021-03-17 00:08 | XMS_ITS | Encounter Summary ---
:1995 Author Care Team Providers Name Role Phone Demetrio Romero MD Primary Care Provider [phone] Reason for Visit OB visit OB [id number] EDC 04/07/2021 LMP 07/13/2020 Assessment and Plan Assessment Note Patient is __28_weeks . Dis cussed plan. 1. Routine care Discussion Note: None recorded.Patient educational handouts: No information available. Plan of Care Reminders Provider Appointments None ? ? recorded. Lab None ? ? recorded. Referral None ? ? recorded. Procedures None ? ? recorded. Surgeries None ? ? recorded. Imaging None ? ? recorded. Medications Name Start Date ? ? Acid Resident Services Director (famotidine) 10 mg tablet ? Allergy [...]
--- OUTSIDE RECORDS SUMMARY | 2021-03-17 00:08 | XMS_ITS | Encounter Summary ---
:1995 Author Care Team Providers Name Role Phone Demetrio Romero MD Primary Care Provider [phone] Reason for Visit None recorded. Assessment and Plan 1. Pre-eclampsia ? non-stress test Discussion Note: None recorded.Patient educational handouts: No information available. Plan of Care Reminders Provider Appointments None ? ? recorded. Lab None ? ? recorded. Referral None ? ? recorded. Procedures None ? ? recorded. Surgeries None ? ? recorded. Imaging 02/27/2021 [place] Non-stress Test Medications Name Start Date ? ? Acid Metal Base Blocker (famotidine) 10 mg tablet ? Allergy (diphenhydramine) [...]
--- OUTSIDE RECORDS SUMMARY | 2021-03-17 00:08 | XMS_ITS | Encounter Summary ---
:1995 Author Care Team Providers Name Role Phone Demetrio Romero MD Primary Care Provider [phone] Reason for Visit None recorded. Assessment and Plan 1. Pre-eclampsia ? non-stress test Discussion Note: None recorded.Patient educational handouts: No information available. Plan of Care Reminders Provider Appointments None ? ? recorded. Lab None ? ? recorded. Referral None ? ? recorded. Procedures None ? ? recorded. Surgeries None ? ? recorded. Imaging 02/24/2021 [place] Non-stress Test Medications Name Start Date ? ? Acid Senior Copywriter (famotidine) 10 mg tablet ? Allergy (diphenhydramine) [...] Medications Administered None recorded. Vitals Blood Pressure (1) 158/90 mm[Hg]
[2021-03-17] MEDS: DINOPROSTONE 10 MG VAG INSERT VAGINAL (00:39)
[2021-03-17 00:48] LABS: Alanine Aminotransferase 15 U/L (4-35); Albumin Level 3.6 g/dL (3.5-5.1); Alkaline Phosphatase 116 U/L (38-126); Anion Gap 9 mmol/L (8-16); Aspartate Amino Transferase 24 U/L (14-36); Bilirubin,Total < 0.1 mg/dL (0.2-1.3); Blood Urea Nitrogen 8 mg/dL (7-17); Calcium 10.1 mg/dL (8.4-10.2); Carbon Dioxide 21 mmol/L (22-30); Chloride 108 mmol/L (98-107); Estimated CRCL calculation 134 ml/min; Estimated Glomerular Filt Rate > 60; Glucose 92 mg/dL (65-110); Potassium 3.7 mmol/L (3.4-5.0); Sodium 138 mmol/L (137-145)
[2021-03-17 00:49] LABS: Uric Acid 6.2 mg/dL (2.5-7.5)
[2021-03-17 01:14] LABS: Basophils Percent Auto 0.3 % (0.2-1.2); Eosinophils Absolute Auto 0.2 K/mm3 (0-0.3); Eosinophils Percent Auto 1.8 % (0-4.4); Hematocrit 29.4 % (37.0-47.0); Hemoglobin 9.4 g/dL (12.0-15.0); Immature Granulocyte Absolute 0.22 K/mm3 (0.00-0.031); Immature Granulocyte Percent A 1.7 % (0-0.5); Lymphocytes Absolute Auto 2.29 K/mm3 (0.9-3.2); Lymphocytes Percent Auto 17.7 % (18.3-44.2); Mean Corpuscular Volume 84.5 fl (80-100); Mean Platelet Volume 10.5 fl (7.4-10.4); Monocytes Absolute Auto 0.8 K/mm3 (0.1-0.6); Monocytes Percent Auto 5.8 % (2.6-8.5); Neutrophils Absolute Auto 9.4 K/mm3 (1.3-6.7); Neutrophils Percent Auto 72.7 % (45.5-73.1); Platelet Count Result 153 k/mm3 (150-375); Red Blood Count 3.48 M/mm3 (4.2-5.4); Red Cell Distribution Width 15.8 % (11.5-14.5); White Blood Count 12.9 K/mm3 (4.5-10.0)
--- NOTE | 2021-03-17 06:39 | WPDANESEPP ---
Anes - Eval Pre Procedure Procedure: labor epidural Date/Time: 03/17/21 06:39 Surgeon: rita Preop Diagnosis: pain during labor Pre Op Diagnosis: IOL Patient Data Age: 26 Gender: F Height: 15.98 m Weight: 115 kg Last Vital Signs Pulse 90 03/17/21 06:31 BP 133/73 03/17/21 06:31 Allergies Allergy/AdvReac Type Severity Reaction Status Date / Time No Known Allergies Allergy Verified 03/13/21 13:35 Home Medications Medication Instructions Recorded Confirmed Type Asmanex Twisthaler 220 mcg INHALATION DAILY 02/27/21 03/13/21 History albuterol 90 mcg INHALATION PRN PRN 02/27/21 03/13/21 History montelukast 10 mg PO DAILY 02/27/21 03/13/21 History famotidine 20 mg PO DAILY 03/10/21 03/13/21 History ferrous sulfate 140 mg PO BID 03/10/21 03/13/21 History ondansetron 4 mg PO DAILY 03/10/21 03/13/21 History prenat.vits,jennifer,qsz-[id number]-pdhgn 1 tablet PO DAILY 03/10/21 03/13/21 History [ #2] Laboratory Tests 03/17/21 03/17/21 03/17/21 00:31 00:31 00:31 WBC 12.9 K/mm3 H K/mm3 (4.5-10.0) RBC 3.48 M/mm3 L M/mm3 (4.2-5.4) Hgb 9.4 g/dL L g/dL (12.0-15.0) Hct 29.4 % L % (37.0-47.0) MCV 84.5 fl fl (80-100) MCH 27.0 pg pg (26-34) MCHC 32.0 g/dl g/dl (32-36) RDW 15.8 % H % (11.5-14.5) Plt Count 153 k/mm3 k/mm3 (150-375) MPV 10.5 fl H fl (7.4-10.4) Immature Gran % (Auto) 1.7 % H % (0-0.5) Neut % (Auto) 72.7 % % (45.5-73.1) Lymph % (Auto) 17.7 % L % (18.3-44.2) [place] % (Auto) 5.8 % % (2.6-8.5) Eos % (Auto) 1.8 % % (0-4.4) Baso % (Auto) 0.3 % % (0.2-1.2) Lymph # (Auto) 2.29 K/mm3 K/mm3 (0.9-3.2) [place] # (Auto) 0.8 K/mm3 H K/mm3 (0.1-0.6) Eos # (Auto) 0.2 K/mm3 K/mm3 (0-0.3) Baso # (Auto) 0.0 K/mm3 K/mm3 (0.0-0.1) Abs Immat Gran (auto) 0.22 K/mm3 H K/mm3 (0.00-0.031) Absolute Neuts (auto) 9.4 K/mm3 H K/mm3 (1.3-6.7) Absolute Nucleated RBC 0.0 K/mm3 K/mm3 (0.0-0.012) Nucleated RBC % 0.0 % % (0.0-0.2) Sodium Potassium Chloride Carbon Dioxide Anion Gap BUN Creatinine Estim Creat Clear Calc Estimated GFR Glucose Uric Acid 6.2 mg/dL mg/dL (2.5-7.5) Calcium Total Bilirubin AST ALT Alkaline Phosphatase Total Protein Albumin RPR Pending Blood Type Antibody Screen 03/17/21 03/17/21 00:31 00:31 WBC RBC Hgb Hct MCV MCH MCHC RDW Plt Count MPV Immature Gran % (Auto) Neut % (Auto) Lymph % (Auto) [place] % (Auto) Eos % (Auto) Baso % (Auto) Lymph # (Auto) [place] # (Auto) Eos # (Auto) Baso # (Auto) Abs Immat Gran (auto) Absolute Neuts (auto) Absolute Nucleated RBC Nucleated RBC % Sodium 138 mmol/L mmol/L (137-145) Potassium 3.7 mmol/L mmol/L (3.4-5.0) Chloride 108 mmol/L H mmol/L (98-107) Carbon Dioxide 21 mmol/L L mmol/L (22-30) Anion Gap 9 mmol/L mmol/L (8-16) BUN 8 mg/dL mg/dL (7-17) Creatinine 1.00 mg/dL mg/dL (0.7-1.0) Estim Creat Clear Calc 134 ml/min ml/min Estimated GFR > 60 (59 - ) Glucose 92 mg/dL mg/dL (65-110) Uric Acid Calcium 10.1 mg/dL mg/dL (8.4-10.2) Total Bilirubin < 0.1 mg/dL L mg/dL (0.2-1.3) AST 24 U/L U/L (14-36) ALT 15 U/L U/L (4-35) Alkaline Phosphatase 116 U/L U/L (38-126) Total Protein 6.0 g/dL L
--- NOTE | 2021-03-17 07:57 | WPDOBADMIT ---
Obstetrics - Admit Note Admission Note: 26 y/o G1 @ 37 weeks. complicated by pre eclampsia. record reviewed. No pertinent additions to the history and/or any subsequent changes in the physical findings that are not consistent with the expected course of the were found. Additions to the history and/or subsequent changes in the physical findings follow. None.
[2021-03-17 12:00] LABS: Rapid Plasma Reagin Non-Reactive (NonReactive)
[2021-03-17] MEDS: LACTATED RINGERS 1,000 ML 125 ML IV CONT (13:35)
[2021-03-17] MEDS: OXYTOCIN 30 UNITS/NS 500 ML 30 UNITS/500 ML BAG 6 UNITS IV CONT (13:35)
[2021-03-17] MEDS: fentaNYL CITRATE INJ (*CRX) 100 MCG/2 ML VIAL 50 MCG IV PUSH (17:40)
--- NOTE | 2021-03-17 17:48 | PM.OBPNLAB ---
Pain Control Date/time seen: 03/17/21 17:48 Cervix /-2. AROM small amount of clear odorless fluid.
[2021-03-17] MEDS: ONDANSETRON INJ 4 MG/2 ML VIAL IV PUSH (18:49)
[2021-03-18] VITALS (352 sets, daily range): BP systolic 83–199; BP diastolic 42–175; PULSE 25–197; RESP 15–16; TEMP 36.4–38.1; O2SAT 86–100
[2021-03-18] MEDS: fentaNYL CITRATE INJ (*CRX) 100 MCG/2 ML VIAL 50 MCG IV PUSH (00:13)
[2021-03-18] MEDS: LACTATED RINGERS 1,000 ML 125 ML IV CONT ×3 (00:14→11:31)
[2021-03-18] MEDS: ONDANSETRON INJ 4 MG/2 ML VIAL IV PUSH ×5 (00:19→21:09)
[2021-03-18] MEDS: ALBUTEROL SULFATE NEB 2.5 MG/0.5 ML INH INHALATION (07:51)
--- NOTE | 2021-03-18 07:52 | PM.OBPNLAB ---
Pain Control Date/time seen: 03/18/21 07:52 Around 0720 pt did have a asthma attack and sats down to the 70's. FHR deceleration x 3 minutes. Improved with inhaler and rapid response team called. Pt and status improved quickly. Dr James was here and also ordered neb. Currently: VSS and afebrile Contractions regular but not very strong. Pitocin off (d/t asthma attack and fhr deceleration) and will be restarted. FHR category 1 Cervix 4 per RN
[2021-03-18] MEDS: AMPICILLIN 2 GM/NS 100 ML 2 GM/100 ML BAG IVPB (11:26)
[2021-03-18] MEDS: AMPICILLIN 1 GM/NS 50 ML 1 GM/50 ML BAG IVPB (15:42)
[2021-03-18] MEDS: OXYTOCIN 30 UNITS/NS 500 ML 30 UNITS/500 ML BAG 6 UNITS IV CONT (17:04)
[2021-03-18] MEDS: MAGNESIUM SULF 4 GM/WATER100ML 4 GM/100 ML BAG IVPB (17:04)
[2021-03-18] MEDS: MAGNESIUM SULF 20GM/WATER500ML 500 ML 50 MG IV CONT (17:30)
[2021-03-18 20:53] LABS: Basophils Absolute Auto 0.1 K/mm3 (0.0-0.1); Basophils Percent Auto 0.3 % (0.2-1.2); Hematocrit 29.6 % (37.0-47.0); Hemoglobin 9.6 g/dL (12.0-15.0); Immature Granulocyte Absolute 0.27 K/mm3 (0.00-0.031); Immature Granulocyte Percent A 1.4 % (0-0.5); Lymphocytes Absolute Auto 0.77 K/mm3 (0.9-3.2); Lymphocytes Percent Auto 4.1 % (18.3-44.2); Mean Corpuscular HGB Conc 32.4 g/dl (32-36); Mean Corpuscular Hemoglobin 27.7 pg (26-34); Mean Corpuscular Volume 85.3 fl (80-100); Mean Platelet Volume 9.8 fl (7.4-10.4); Monocytes Absolute Auto 0.8 K/mm3 (0.1-0.6); Monocytes Percent Auto 4.2 % (2.6-8.5); Neutrophils Absolute Auto 17.1 K/mm3 (1.3-6.7); Nucleated Red Blood Cells Perc 0.2 % (0.0-0.2); Platelet Count Result 145 k/mm3 (150-375); Red Blood Count 3.47 M/mm3 (4.2-5.4); Red Cell Distribution Width 16.2 % (11.5-14.5)
[2021-03-18 21:37] LABS: INR 1.1; Prothrombin Time 13.7 Seconds (11.1-14.7)
[2021-03-18] MEDS: LACTATED RINGERS 1,000 ML 999 ML IV CONT (21:37)
--- NOTE | 2021-03-18 21:37 | PM.OBPRVD ---
OB - Delivery Note Procedure Delivery date: 03/18/21 events: Pre-Eclampsia Intrapartal events: None Induction method: per pitocin protocol and per cervidil protocol Delivery monitor: external FHT, external uterine, internal FHT and internal uterine Route of delivery: Episiotomy description: None Laceration Description: None Quantitative Blood Loss (ml): 1,100 Anesthesia type: Epidural Complications: Placenta not delivered spontaneously at 30 minutes. Betadine soak and then manual removal. 2 attempts. Placenta came out mostly intact with small pieces of maternal side removed after the placenta. Pitocin bolus started right after delivery of placenta. Within a couple minutes uterus became boggy and had a heavy flow. Bimanual massage was helpful but did not firm up completely. On uterine exploration I was able to remove a few remaining small fragments of placenta. Flow remained moderate. Cytotec 1000mcg per rectum. Bimanual massage again with no improvement. At this point estimated loss was 600. Team OB called and Dr Valente called. Protocol started. Order given for additional IV. Bloodwork drawn along with IV start. Magnesium turned off. Anesthesia at bedside and additional pain medication given d/t pain with exam. Bleeding did slow down but was still a moderate flow. Asked to have balloon at bedside for insertion once Dr Valente arrives. Upon arrival of Dr Valente blood loss was right at 1100 total. Uterine exploration repeated by him and bakri balloon placed. Inflated with 300cc total of ns. Flow controlled.Pt stable. BP and hr improved. Pt did have phenylephrine per anesthesia. Spoke with Dr Valente and plan to keep magnesium off for now, repeat labs in 2 hours and start ancef 2gm q 8 hours x 24 hours. Staff will notify Dr Valente of lab results. Baby Date of : 03/18/21 Time of : 20:03 Weeks of gestation at delivery: 37 gender: Female Weight (pounds): 7 Weight (ounces): 2 presentation: compound (right hand) position: Right Occiput Anterior Placenta delivery description: Manual Removal (Manual removal of placenta 30 minutes after delivery) cord vessel description: Delayed Cord Clamping
[2021-03-18 21:38] LABS: Partial Thromboplastin Time 27.8 SECONDS (22.3-36.8)
[2021-03-18 21:40] LABS: D Dimer 3.29 ug/mL (<0.48)
[2021-03-18] MEDS: ceFAZolin 2 GM/D5W 50 ML 2 GM/50 ML BAG IVPB (21:45)
[2021-03-18 21:49] LABS: Fibrinogen 277 mg/dl (215-510)
[2021-03-18 23:09] LABS: Hematocrit 21.9 % (37.0-47.0); Hemoglobin 7.1 g/dL (12.0-15.0); Mean Corpuscular HGB Conc 32.4 g/dl (32-36); Mean Corpuscular Hemoglobin 27.2 pg (26-34); Mean Corpuscular Volume 83.9 fl (80-100); Mean Platelet Volume 9.9 fl (7.4-10.4); Platelet Count Result 181 k/mm3 (150-375); Red Blood Count 2.61 M/mm3 (4.2-5.4); Red Cell Distribution Width 16.1 % (11.5-14.5); White Blood Count 30.7 K/mm3 (4.5-10.0)
[2021-03-18 23:18] LABS: Alanine Aminotransferase 13 U/L (4-35); Albumin Level 2.4 g/dL (3.5-5.1); Alkaline Phosphatase 105 U/L (38-126); Anion Gap 8 mmol/L (8-16); Aspartate Amino Transferase 29 U/L (14-36); Bilirubin,Total 0.3 mg/dL (0.2-1.3); Blood Urea Nitrogen 6 mg/dL (7-17); Calcium 7.6 mg/dL (8.4-10.2); Carbon Dioxide 17 mmol/L (22-30); Chloride 109 mmol/L (98-107); Estimated CRCL calculation 134 ml/min; Estimated Glomerular Filt Rate > 60; Glucose 106 mg/dL (65-110); Potassium 3.7 mmol/L (3.4-5.0); Sodium 134 mmol/L (137-145)
[2021-03-19] VITALS (68 sets, daily range): BP systolic 98–158; BP diastolic 62–105; PULSE 93–135; RESP 16–18; TEMP 36.7–37.3; O2SAT 93–98
[2021-03-19] MEDS: fentaNYL CITRATE INJ (*CRX) 100 MCG/2 ML VIAL IV PUSH (00:20)
[2021-03-19] MEDS: PROMETHAZINE HCL 25 MG/ML AMPUL 12.5 MG IV PUSH (00:20)
--- NOTE | 2021-03-19 03:44 | OBPPTRN ---
Patient transferred to post room #281 via wheelchair. Support person present. Oriented to unit, room, information board, rooming in, admission packet and security measures. Patient verbalizes understanding.
[2021-03-19 05:42] LABS: Mean Corpuscular HGB Conc 33.5 g/dl (32-36); Mean Corpuscular Hemoglobin 27.8 pg (26-34); Mean Corpuscular Volume 82.8 fl (80-100); Mean Platelet Volume 10.1 fl (7.4-10.4); Platelet Count Result 155 k/mm3 (150-375); Red Blood Count 2.27 M/mm3 (4.2-5.4); Red Cell Distribution Width 16.3 % (11.5-14.5); White Blood Count 29.4 K/mm3 (4.5-10.0)
[2021-03-19 05:45] LABS: Hematocrit 18.8 % (37.0-47.0); Hemoglobin 6.3 g/dL (12.0-15.0)
[2021-03-19 05:53] LABS: Alanine Aminotransferase 13 U/L (4-35); Albumin Level 2.2 g/dL (3.5-5.1); Alkaline Phosphatase 86 U/L (38-126); Anion Gap 4 mmol/L (8-16); Aspartate Amino Transferase 29 U/L (14-36); Bilirubin,Total 0.2 mg/dL (0.2-1.3); Blood Urea Nitrogen 6 mg/dL (7-17); Calcium 7.6 mg/dL (8.4-10.2); Carbon Dioxide 22 mmol/L (22-30); Chloride 107 mmol/L (98-107); Estimated CRCL calculation 134 ml/min; Estimated Glomerular Filt Rate > 60; Glucose 106 mg/dL (65-110); Potassium 3.7 mmol/L (3.4-5.0); Sodium 133 mmol/L (137-145)
[2021-03-19] MEDS: ceFAZolin 2 GM/D5W 50 ML 2 GM/50 ML BAG IVPB ×3 (05:55→22:01)
[2021-03-19] MEDS: SODIUM CHLORIDE 0.9% IV 250 ML 30 ML IV CONT (07:39)
[2021-03-19] MEDS: POLYSACCHARIDE IRON COMPLEX 150 MG CAPSULE PO ×2 (07:40→16:27)
[2021-03-19] MEDS: MULTIVIT/MIN/PREN/FOL AC/IRON TABLET 1 TAB PO (07:42)
[2021-03-19] MEDS: IBUPROFEN 600 MG TABLET PO (07:42)
[2021-03-19] MEDS: DOCUSATE SODIUM 100 MG CAPSULE PO ×2 (07:42→16:27)
--- NOTE | 2021-03-19 07:42 | PM.OBPNVD ---
OB - PN: Subj Subjective Date/time seen: 03/19/21 07:42 Interval history: pt currently has blood hanging, 1 of 2 units ordered. feels pressure from the bakri Patient comments: no complaints and pain well controlled [place] baby status: doing well OB - PN: Obj Data Labs CBC & Chem 7: 03/19/21 05:12 03/19/21 05:12 Labs: Laboratory Results - last 24 hr 03/17/21 03/18/21 03/18/21 00:31 20:45 20:45 WBC 19.0 H RBC 3.47 L Hgb 9.6 L Hct 29.6 L MCV 85.3 MCH 27.7 MCHC 32.4 RDW 16.2 H Plt Count 145 L MPV 9.8 Immature Gran % (Auto) 1.4 H Neut % (Auto) 90.0 H Lymph % (Auto) 4.1 L [place] % (Auto) 4.2 Eos % (Auto) 0.0 Baso % (Auto) 0.3 Lymph # (Auto) 0.77 L [place] # (Auto) 0.8 H Eos # (Auto) 0.0 Baso # (Auto) 0.1 Abs Immat Gran (auto) 0.27 H Absolute Neuts (auto) 17.1 H Absolute Nucleated RBC 0.0 Nucleated RBC % 0.2 PT 13.7 INR 1.1 APTT 27.8 Fibrinogen 277 D-Dimer 3.29 H Sodium Potassium Chloride Carbon Dioxide Anion Gap BUN Creatinine Estim Creat Clear Calc Estimated GFR Glucose Calcium Total Bilirubin AST ALT Alkaline Phosphatase Total Protein Albumin Blood Type A Positive Antibody Screen Negative Crossmatch See Detail 03/18/21 03/18/21 03/19/21 22:57 23:00 05:12 WBC 30.7 H 29.4 H RBC 2.61 L 2.27 L Hgb 7.1 L 6.3 L* Hct 21.9 L 18.8 L* MCV 83.9 82.8 MCH 27.2 27.8 MCHC 32.4 33.5 RDW 16.1 H 16.3 H Plt Count 181 155 MPV 9.9 10.1 Immature Gran % (Auto) Neut % (Auto) Lymph % (Auto) [place] % (Auto) Eos % (Auto) Baso % (Auto) Lymph # (Auto) [place] # (Auto) Eos # (Auto) Baso # (Auto) Abs Immat Gran (auto) Absolute Neuts (auto) Absolute Nucleated RBC Nucleated RBC % PT INR APTT Fibrinogen D-Dimer Sodium 134 L Potassium 3.7 Chloride 109 H Carbon Dioxide 17 L Anion Gap 8 BUN 6 L Creatinine 1.00 Estim Creat Clear Calc 134 Estimated GFR > 60 Glucose 106 Calcium 7.6 L Total Bilirubin 0.3 AST 29 ALT 13 Alkaline Phosphatase 105 Total Protein 4.0 L Albumin 2.4 L Blood Type Antibody Screen Crossmatch 03/19/21 05:12 WBC RBC Hgb Hct MCV MCH MCHC RDW Plt Count MPV Immature Gran % (Auto) Neut % (Auto) Lymph % (Auto) [place] % (Auto) Eos % (Auto) Baso % (Auto) Lymph # (Auto) [place] # (Auto) Eos # (Auto) Baso # (Auto) Abs Immat Gran (auto) Absolute Neuts (auto) Absolute Nucleated RBC Nucleated RBC % PT INR APTT Fibrinogen D-Dimer Sodium 133 L Potassium 3.7 Chloride 107 Carbon Dioxide 22 Anion Gap 4 L BUN 6 L Creatinine 1.00 Estim Creat Clear Calc 134 Estimated GFR > 60 Glucose 106 Calcium 7.6 L Total Bilirubin 0.2 AST 29 ALT 13 Alkaline Phosphatase 86 Total Protein 4.0 L Albumin 2.2 L Blood Type Antibody Screen Crossmatch OB - PN A/P Plan day: 1 Plan: routine care Comments: plan cbc and BP labs 2 hours after blood infusion, monitor bp, plan on keeping urinary catheter until after blood transfusion Time Spent With Patient Time: Total time spent is greater than 50% in coordination of care (as documented) at patient's floor/unit and/or counseling patient: Review of Systems Review of Systems: All systems reviewed & are unremarkable except as noted in HPI and below Exam Narrative: bakri removed w/o difficulty, 300 cc fluid, fundus firm with no visible bleeding Const: General: cooperative, healthy appearing and comfortable
--- NOTE | 2021-03-19 12:38 | WPDANLDPN2 ---
Anes-Prog Note L&D Date/Time: 03/19/21 12:38 Comfortable throughout: labor and delivery Neuraxial method: epidural Epidural/Spinal procedure site: clean & non-tender Neuro status: Neuro function grossly intact. Cardiovascular status: normal Respiratory status: normal Airway patency: baseline Mental status: baseline Post-Op hydration status: normal Vital Signs: Last Vital Signs Temp 98.7 F 03/19/21 11:11 Pulse 103 H 03/19/21 11:11 Resp 16 03/19/21 11:11 BP 133/79 03/19/21 11:11 Pulse Ox 97 03/19/21 11:11 Pain score (VAS): 0/10 I/O: Intake & Output 03/18/21 03/19/21 03/19/21 23:59 07:59 15:59 Intake Total 650 1000 371 Output Total 1100 775 Balance -450 225 371 Post-procedural complaints: none Patient feedback: Patient satisfied with anesthetic care.
--- NOTE | 2021-03-19 16:01 | PC.NURSE ---
0930 - Breast pump provided due to ineffective and moms desire to feed baby human milk. Instructions given on breast pump care and usage, pumping schedule (at least 8 times in 24 hours, 1-2 times at night), nipple care, and collection and storage of breast milk. Directed parents to the mom and baby guide resource. Encouraged [id number], breast massage and hand expression (visual hand out) to stimulate supply. Pumping schedule to be logged on the feeding sheet. Assessed patient for correct flange size, placement and draw. Patient verbalizes and demonstrates understanding of instructions. Reported to primary RN. 1000 - Primary RN reported mom fed infant a bottle.
[2021-03-19 16:46] LABS: Hematocrit 24.5 % (37.0-47.0); Hemoglobin 8.2 g/dL (12.0-15.0); Mean Corpuscular HGB Conc 33.5 g/dl (32-36); Mean Corpuscular Hemoglobin 28.9 pg (26-34); Mean Corpuscular Volume 86.3 fl (80-100); Mean Platelet Volume 9.9 fl (7.4-10.4); Platelet Count Result 153 k/mm3 (150-375); Red Blood Count 2.84 M/mm3 (4.2-5.4); Red Cell Distribution Width 15.8 % (11.5-14.5); White Blood Count 20.9 K/mm3 (4.5-10.0)
[2021-03-19 16:55] LABS: Alanine Aminotransferase 13 U/L (4-35); Albumin Level 2.4 g/dL (3.5-5.1); Alkaline Phosphatase 84 U/L (38-126); Anion Gap 5 mmol/L (8-16); Aspartate Amino Transferase 31 U/L (14-36); Bilirubin,Total 0.1 mg/dL (0.2-1.3); Blood Urea Nitrogen 10 mg/dL (7-17); Carbon Dioxide 21 mmol/L (22-30); Chloride 107 mmol/L (98-107); Estimated CRCL calculation 140 ml/min; Estimated Glomerular Filt Rate > 60; Glucose 89 mg/dL (65-110); Potassium 3.5 mmol/L (3.4-5.0); Sodium 133 mmol/L (137-145); Uric Acid 6.7 mg/dL (2.5-7.5)
[2021-03-19 17:28] LABS: Lymphocytes Absolute Manual 3.97 K/mm3 (1.1-4.5); Monocytes Absolute Manual 0.83 K/mm3 (0.1-0.90); Monocytes Percent Manual 4 % (3-9); Neutrophils Percent Manual 77 % (46-73); Platelet Estimate Adequate (Adequate); Total Cells Counted 100
[2021-03-19 17:29] LABS: Anisocytosis 2+ (NORMAL)
[2021-03-20 03:25] VITALS: BP 140/85; PULSE 87
[2021-03-20] MEDS: POLYSACCHARIDE IRON COMPLEX 150 MG CAPSULE PO ×2 (07:36→16:42)
[2021-03-20] MEDS: MULTIVIT/MIN/PREN/FOL AC/IRON TABLET 1 TAB PO (07:37)
[2021-03-20] MEDS: IBUPROFEN 600 MG TABLET PO ×2 (07:37→16:43)
[2021-03-20] MEDS: DOCUSATE SODIUM 100 MG CAPSULE PO ×2 (07:37→16:43)
[2021-03-20 07:53] VITALS: BP 142/92; PULSE 78; RESP 82; TEMP 36.4
--- NOTE | 2021-03-20 08:14 | P.PNOB_ITS ---
OB - PN: Subj Subjective Date/time seen: 03/20/21 08:14 Interval history: Bleeding controlled. Pt tollerating ambulating.i Patient comments: no complaints [place] baby status: doing well OB - PN: Obj Data Labs CBC & Chem 7: 03/19/21 16:40 03/19/21 16:40 Labs: Laboratory Results - last 24 hr 03/17/21 03/19/21 03/19/21 00:31 16:40 16:40 WBC 20.9 H RBC 2.84 L Hgb 8.2 L Hct 24.5 L MCV 86.3 MCH 28.9 MCHC 33.5 RDW 15.8 H Plt Count 153 MPV 9.9 Immature Gran % (Auto) Not Reportable Neut % (Auto) Not Reportable Lymph % (Auto) Not Reportable [place] % (Auto) Not Reportable Eos % (Auto) Not Reportable Baso % (Auto) Not Reportable Lymph # (Auto) Not Reportable [place] # (Auto) Not Reportable Eos # (Auto) Not Reportable Baso # (Auto) Not Reportable Abs Immat Gran (auto) Not Reportable Absolute Neuts (auto) Not Reportable Absolute Nucleated RBC Not Reportable Total Counted 100 Neutrophils % (Manual) 77 H Lymphocytes % (Manual) 19.0 Monocytes % (Manual) 4 Nucleated RBC % Not Reportable Abs Lymphs (Manual) 3.97 Abs Monocytes (Manual) 0.83 Platelet Estimate Adequate Anisocytosis 2+ Sodium 133 L Potassium 3.5 Chloride 107 Carbon Dioxide 21 L Anion Gap 5 L BUN 10 Creatinine 1.00 Estim Creat Clear Calc 140 Estimated GFR > 60 Glucose 89 Uric Acid 6.7 Calcium 8.0 L Total Bilirubin 0.1 L AST 31 ALT 13 Alkaline Phosphatase 84 Total Protein 5.0 L Albumin 2.4 L Blood Type A Positive Antibody Screen Negative Crossmatch See Detail OB - PN A/P Plan day: 2 Plan: routine care Comments: Pt will need to stay 72 hours for pre eclampsia. Time Spent With Patient Time: Total time spent is greater than 50% in coordination of care (as documented) at patient's floor/unit and/or counseling patient: Time with patient: less than 15 minutes Review of Systems Review of Systems: All systems reviewed & are unremarkable except as noted in HPI and below Exam Narrative: Fundus firm and vaginal flow controlled. No lower ext redness, warm th, or edema. Negative homans. Denies h/a, v/d or e/p. Reflexes normal. Const: General: comfortable Chest: Breast/axilla inspection: normal inspection of the breasts Resp: Effort & Inspection: normal respiratory effort Cardio: Rate: regular rate GI: GI Palp: Yes Soft to palpation Psych: Appearance: grossly normal Affect: normal affect Attitude: cooperative Thought content: Yes Normal thought content present Judgement: Good judgement present (Psych)
[2021-03-20 12:00] VITALS: BP 138/90; PULSE 82; RESP 18; TEMP 36.4
[2021-03-20 14:40] VITALS: BP 144/78; PULSE 79; RESP 18
[2021-03-20 16:44] VITALS: BP 144/76; PULSE 92; O2SAT 100
[2021-03-20 21:00] VITALS: BP 148/88; PULSE 86; RESP 16; TEMP 36.8; O2SAT 98
[2021-03-21 01:00] VITALS: BP 143/88; PULSE 89
[2021-03-21 05:00] VITALS: BP 140/87; PULSE 84
--- NOTE | 2021-03-21 07:31 | PM.OBPNVD ---
OB - PN: Subj Subjective Date/time seen: 03/21/21 07:31 Interval history: Bleeding controlled. Pt tolerating ambulating. OB - PN: Obj Data Labs CBC & Chem 7: 03/19/21 16:40 03/19/21 16:40 OB - PN A/P Time Spent With Patient Time: Total time spent is greater than 50% in coordination of care (as documented) at patient's floor/unit and/or counseling patient:
--- NOTE | 2021-03-21 07:32 | PM.OBPNVD ---
OB - PN: Subj Subjective Date/time seen: 03/21/21 07:32 Interval history: Bleeding controlled. Pt tolerating ambulating. OB - PN: Obj Data Labs CBC & Chem 7: 03/19/21 16:40 03/19/21 16:40 OB - PN A/P Plan day: 3 Plan: routine care and discharge home Time Spent With Patient Time: Total time spent is greater than 50% in coordination of care (as documented) at patient's floor/unit and/or counseling patient: Review of Systems Review of Systems: All systems reviewed & are unremarkable except as noted in HPI and below Exam Const: General: cooperative, healthy appearing and comfortable
--- NOTE | 2021-03-21 07:34 | PM.OBDSVD ---
DS: Admitting Diagnosis Discharge Date 03/21/21 Admitting Diagnosis preeclampsia, MIL OB - DS: Summary OB Procedures : PIH Mgmt OB Procedures Intrapartum: Spontaneous Vag Delivery OB Procedures: : Transfusion Time Spent with Patient Time attestation: Total time spent providing and/or coordinating discharge services: DS: Data Data Completed and Pending Pending studies at discharge: Pending at discharge 03/18/21 20:33 Surgical [PTH] Routine Discharge Plan Discharge Attending physician on discharge: Estee Valente Discharging Clinician: Amara Arroyo Patient Disposition: Home, Self-Care Activity: pelvic rest Diet: regular Patient Instructions: Antibiotic Form Stand Alone Forms: General Discharge Information Follow-up/Referrals: Maru Millan CNM [Certified Nurse Registered Nurse Hh Case Manager] - 4 Weeks Discharge Medications: New ibuprofen 600 mg Tablet 600 mg PO Q6H PRN (Reason: Cramping) Qty: 30 RF: 0 Continued #2 Tablet 1 tablet PO DAILY RF: 0 ferrous sulfate 140 mg (45 mg iron) Tablet Extended Release 140 mg PO BID RF: 0 montelukast 10 mg tablet 10 mg PO DAILY RF: 0 albuterol 90 mcg/actuation Aerosol 90 mcg INHALATION PRN PRN (Reason: Adequate Ventilation) RF: 0 Asmanex Twisthaler 220 mcg/ actuation (30) aerosol powdr breath activated 220 mcg INHALATION DAILY RF: 0 Discontinued famotidine 20 mg Tablet 20 mg PO DAILY RF: 0 ondansetron 4 mg Tablet,Disintegrating 4 mg PO DAILY RF: 0 Date of admission: 03/17/21 00:01 Primary Care Provider: UNKNOWN,DOCTOR Admitting Provider: Estee Valente Attending physician on admission: Estee Valente Condition: Stable
[2021-03-21 07:55] VITALS: BP 138/83; PULSE 87; RESP 18; TEMP 36.5; O2SAT 98
[2021-03-21] MEDS: IBUPROFEN 600 MG TABLET PO (07:58)
[2021-03-21] MEDS: MULTIVIT/MIN/PREN/FOL AC/IRON TABLET 1 TAB PO (07:58)
[2021-03-21] MEDS: DOCUSATE SODIUM 100 MG CAPSULE PO (07:58)
[2021-03-21] MEDS: POLYSACCHARIDE IRON COMPLEX 150 MG CAPSULE PO (07:58)
--- NOTE | 2021-03-21 08:00 | PC.NURSE ---
Patient viewed the discharge video Mother & Baby Care, The First Two Weeks . Patient was given the opportunity and encouraged to ask questions. Patient verbalized understanding of information shared and has been given the mother/baby guide for home reference.
[2021-03-21 09:09] LABS: Add Urine Microscopic? YES; Appearance Urine Clear (Clear); Bilirubin Urine Negative (Negative); Blood Urine 2+ (Negative); Color Urine Colorless (Yellow); Glucose Urine UA Negative (Negative); Ketones Urine Negative (Negative); Leukocyte Esterase Ur Trace LEU/UL (NEGATIVE); Nitrate Urine Negative (Negative); Protein Urine Negative (Negative); Specific Grav Ur 1.005 (1.001-1.035); Urobilinogen Urine Negative mg/dL (<2.0); WBC Urine 0-3 /hpf (0-3)
[2021-03-22 11:45] VITALS: BP 148/88; PULSE 68; RESP 20; TEMP 37.1; O2SAT 100
== END 2021-03-21 11:30 | disposition home or self-care (01) | DRG 768 ==
LOC: ANHLDR 03-18 12:43 → ANHOB2 03-19 04:20
PROVIDERS: Advanced Practice Midwife; Admitting Provider Obstetrics & Gynecology; Visit Provider Obstetrics & Gynecology
DX: O99.52 Diseases of the respiratory system complicating childbirth (principal); Z37.0 Single live birth; O75.2 Pyrexia during labor, not elsewhere classified; J45.901 Unspecified asthma with (acute) exacerbation; O72.1 Other immediate postpartum hemorrhage; O14.94 Unspecified pre-eclampsia, complicating childbirth; O76 Abnormality in fetal heart rate and rhythm complicating labor and delivery; O32.6XX0 Maternal care for compound presentation, not applicable or unspecified; O67.9 Intrapartum hemorrhage, unspecified; Z3A.37 37 weeks gestation of pregnancy; O42.92 Full-term premature rupture of membranes, unspecified as to length of time between rupture and onset of labor
CPT/HCPCS: 36415; 36430; 80053; 81001; 84550; 85025; 85027; 85380; 85384; 85610; 85730; 86592; 86850; 86900; 86901; 86920; 88307; A9270; J0131; J0290; J0690; J2405; J2550; J2590; J2795; J3010; J3475; J7050; J7120; P9016

== ENCOUNTER 2022-02-28 19:10 | Outpatient (CLI) | payer BC, SELFPAY ==
[2022-02-28 19:40] VITALS: BP 122/80; PULSE 113
[2022-02-28 19:44] LABS: Add Urine Microscopic? YES; Appearance Urine Cloudy (Clear); Basophils Percent Auto 0.3 % (0.2-1.2); Bilirubin Urine Negative (Negative); Blood Urine Negative (Negative); Color Urine Yellow (Yellow); Eosinophils Absolute Auto 0.3 K/mm3 (0-0.3); Eosinophils Percent Auto 2.3 % (0-4.4); Glucose Urine UA Negative (Negative); Hematocrit 31.5 % (37.0-47.0); Immature Granulocyte Absolute 0.11 K/mm3 (0.00-0.031); Immature Granulocyte Percent A 0.9 % (0-0.5); Ketones Urine Negative (Negative); Leukocyte Esterase Ur 2+ LEU/UL (NEGATIVE); Lymphocytes Percent Auto 15.1 % (18.3-44.2); Mean Corpuscular HGB Conc 31.7 g/dl (32-36); Mean Corpuscular Hemoglobin 26.5 pg (26-34); Mean Corpuscular Volume 83.6 fl (80-100); Mean Platelet Volume 8.8 fl (7.4-10.4); Monocytes Absolute Auto 0.7 K/mm3 (0.1-0.6); Monocytes Percent Auto 5.7 % (2.6-8.5); Neutrophils Percent Auto 75.7 % (45.5-73.1); Nitrate Urine Negative (Negative); Platelet Count Result 170 k/mm3 (150-375); Protein Urine Negative (Negative); Red Blood Count 3.77 M/mm3 (4.2-5.4); Red Cell Distribution Width 14.1 % (11.5-14.5); Specific Grav Ur 1.015 (1.001-1.035); Urobilinogen Urine 0.2 mg/dL (<2.0); White Blood Count 11.9 K/mm3 (4.5-10.0)
[2022-02-28 19:45] VITALS: BP 130/69; PULSE 112
[2022-02-28 19:51] LABS: Creatinine Urine 142.4 mg/dL; Total Protein Urine Random 16 mg/dL; Ur Ttl Prot Creatinine Ratio 0.11 mg/mg (0-0.20)
[2022-02-28 19:58] LABS: Alanine Aminotransferase 18 U/L (6-35); Albumin Level 3.7 g/dL (3.5-5.1); Alkaline Phosphatase 119 U/L (38-126); Anion Gap 6 mmol/L (8-16); Aspartate Amino Transferase 17 U/L (14-36); Bilirubin,Total 0.3 mg/dL (0.2-1.3); Blood Urea Nitrogen 6 mg/dL (7-17); Calcium 9.2 mg/dL (8.4-10.2); Carbon Dioxide 24 mmol/L (22-30); Chloride 106 mmol/L (98-107); Estimated Glomerular Filt Rate > 60; Glucose 100 mg/dL (65-110); Potassium 3.4 mmol/L (3.4-5.0); Sodium 136 mmol/L (137-145); Uric Acid 4.9 mg/dL (2.5-7.5)
[2022-02-28 20:00] LABS: Bacteria Urine Trace /hpf; Mucus Urine Rare /lpf; Squamous Epithelial Cell Urine Many /hpf (Few); WBC Urine 51-75 /hpf (0-3)
[2022-02-28 20:01] VITALS: BP 129/64; PULSE 115
[2022-02-28 20:16] VITALS: BP 122/70; PULSE 106
[2022-02-28 20:30] VITALS: BP 121/72; PULSE 106
[2022-02-28 20:40] VITALS: BMI 41.4
--- NOTE | 2022-02-28 20:40 | OBADM ---
This patient, Carmen Nguyễn, admitted to the OB room OB Post 117 for observation. Patient/family oriented to hospital policies and general routines including ID bracelet, bed and alarms, visiting hours, pain management, procedures, bathroom and other care routines, personal items, smoking policy, room service/diet, and visiting hours. Patient/Family are encouraged to report perceived risks to care and to ask questions if they do not understand what they are told or what they should do.
[2022-02-28 20:42] VITALS: TEMP 36.5
== END 2022-02-28 21:05 | disposition home or self-care (01) ==
LOC: ANHOBPP 20:47 → ANHOBOP 03-03 12:02
PROVIDERS: Visit Provider Obstetrics & Gynecology
DX: R10.9 Unspecified abdominal pain (principal); O13.9 Gestational [pregnancy-induced] hypertension without significant proteinuria, unspecified trimester; Z3A.00 Weeks of gestation of pregnancy not specified
CPT/HCPCS: 36415; 80053; 81001; 82570; 84156; 84550; 85025; 87086; 87088

== ENCOUNTER 2022-04-17 05:03 | Inpatient (IN) | payer BC, SELFPAY ==
[2022-04-17] VITALS (91 sets, daily range): BP systolic 92–140; BP diastolic 36–105; PULSE 88–165; RESP 18; TEMP 36.6–37.6; O2SAT 97–100; BMI 41.6
--- OUTSIDE RECORDS SUMMARY | 2022-04-17 05:07 | XMS_ITS ---
Care Plan - [facility] Created on: April 17, 2022 DONAVAN BECKHAM : 1995 Sex: Female Author Name Unknown Address [address] [place] [address] Phone Organization [facility] Address [address] [place] [address] Phone Care Team Providers Care Chairman Of The Board Name Role Phone JESSE KANG, NAUN Martines Primary Care Provider [phone] ASIYA KANG, DIANA C Unavailable [phone] SELENE WEINBERG Unavailable [phone]
--- OUTSIDE RECORDS SUMMARY | 2022-04-17 05:07 | XMS_ITS | Clinical Summary ---
Author Name Unknown Address [address] [place] [address] Phone Organization [facility] Address [address] [place] [address] Phone Care Team Providers Care Salesforce Trainer Name Role Phone NAUN MOLINA MD Primary Care Provider [phone] ASIYA KANG, DIANA C Unavailable [phone] SELENE WEINBERG Unavailable [phone] Reason for Visit and Chief Complaint gynecologic annual exam - The Chief Complaint is: Annual Problems Includes: Problems addressed during this encounter and other active Problems All Visits Onset Date Resolved Date Provider Condition S tatus Asthma 09/04/2009 [facility]- Act [facility] Plan of Treatment - Clinical summary provided to patient - Last Documented On 03/11/2015 3:43PM ; [facility] Per new ASCCP guidelines, pap was deferred today. This was d/w pt. and pt. is agreeable to this plan. - Last Documented On 03/11/2015 3:43PM ; [facility] Instructions to patient Instructions for patient : B reast Self Exam discussed Last Documented On 6 3:19PM ; [facility] Instructions for patient : K eep the area around the vulva dry. Allow the area to have exposure to air. Avoid irritants such as fabric softeners and perfumed soaps.~ Last Do
--- OUTSIDE RECORDS SUMMARY | 2022-04-17 05:07 | XMS_ITS | Clinical Summary ---
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 Problems Includes: Problems addressed during this encounter and other active Problems All Visits Onset Date Resolved Date Provider Condition S tatus Asthma 09/04/2009 [facility] Act mercy Plan of Treatment No Plan of Treatment Recorded Assessments Includes: Assessments from this encounter No Assessments Recorded Medical Equipment - Implanted Devices Includes: Current Devices No Medical Equipment Recorded Medications Includes: Medications discussed during this encounter and other current Medications Current Medications (continue as prescribed) Xyzal Allergy 24HR 5MG Oral Tablet 05/02/2018 Provid er: Diagnosis: Ventolin HFA 108 (90 Base)MCG/ACT Inhalation Aer osol Solution 05/02/2018 Provider:
--- OUTSIDE RECORDS SUMMARY | 2022-04-17 05:07 | XMS_ITS | Clinical Summary ---
Author Name Unknown Address [address] [place] [address] Phone Organization [facility] Address [address] [place] [address] Phone Care Team Providers Care Epitaxial Reactor Technician Name Role Phone JESSE KANG, NAUN Martines Primary Care Provider [phone] ASIYA KANG, DIANA Corona Unavailable [phone] SELENE WEINBERG Unavailable [phone] Reason for Visit and Chief Complaint gynecologic annual exam - The Chief Complaint is: Annual-pt would like std testing Problems Includes: Problems addressed during this encounter and other active Problems All Visits Onset Date Resolved Date Provider Condition S tatus Asthma 09/04/2009 [facility]- Act mercy Plan of Treatment - Clinical summary provided to patient - Last Documented On 01/22/2014 10:52AM ; [facility] Instructions to patient Instructions for patient : B reast Self Exam discussed Last Documented On 4 10:37AM ; [facility] Lose weight Last Documented On 4 10:38AM ; [facility] Safe sex counseling Last Documented On 4 10:38AM ; [facility]
--- OUTSIDE RECORDS SUMMARY | 2022-04-17 05:07 | XMS_ITS | Clinical Summary ---
Author Name Unknown Address [address] [place] [address] Phone Organization [facility] Address [address] [place] [address] Phone Care Team Providers Care Help Desk Support Name Role Phone JESSE KANG, NAUN Martines Primary Care Provider [phone] ASIYA KANG, DIANA C Unavailable [phone] SELENE WEINBERG Unavailable [phone] Reason for Visit and Chief Complaint The Chief Complaint is: WWE Problems Includes: Problems addressed during this encounter and other active Problems All Visits Onset Date Resolved Date Provider Condition S tatus Asthma 09/04/2009 [facility]- Act mercy Plan of Treatment - Clinical summary provided to patient - Last Documented On 06/10/2020 11:10AM ; [facility] Instructions to patient Instructions for patient : B reast Self Exam discussed Last Documented On 1 10:53AM ; [facility] Lose weight Last Documented On 1 10:54AM ; [facility] Education and Decision Aids were provided during visit for: Patient Education: Daily jennifer cium and vitamin D Last Document
--- OUTSIDE RECORDS SUMMARY | 2022-04-17 05:07 | XMS_ITS ---
Author Name Unknown Address [address] [place] [address] Phone Organization [facility] Address [address] [place] [address] Phone Care Team Providers Care Mopper Name Role Phone JESSE KANG, NUAN Martines Primary Care Provider [phone] ASIYA KANG, DIANA C Unavailable [phone] SELENE WEINBERG Unavailable [phone] Problems Includes: Active, inactive, and resolved Problems All Visits Onset Date Resolved Date Provider Condition S tatus Asthma 09/04/2009 [facility]- Act mercy Plan of Treatment Findings Encounter Date Ordered Clinical summary pro vided to patient WELL WOMAN - ESTABLISHED PT with [facility] SORIANO-BC 06/10/2020
--- OUTSIDE RECORDS SUMMARY | 2022-04-17 05:07 | XMS_ITS | Clinical Summary ---
Author Name Unknown Address [address] [place] [address] Phone Organization [facility] Address [address] [place] [address] Phone Care Team Providers Care Player Piano Technician Name Role Phone JESSE KANG, NAUN [...] Condition S tatus Asthma 09/04/2009 [facility]- Act mercy Plan of Treatment - Clinical summary provided to patient - Last Documented On 05/02/2018 1:34PM ; [facility] Instructions to patient Instructions for patient : B reast Self Exam discussed Last Documented On 9 1:10PM ; [facility] Lose weight Last Documented On 9 1:11PM ; [facility] Gardasil information given a nd series encouraged Series completed! Last Documented On 9 1:11PM ; [facility]
[2022-04-17 05:37] LABS: Basophils Percent Auto 0.4 % (0.2-1.2); Eosinophils Absolute Auto 0.3 K/mm3 (0-0.3); Eosinophils Percent Auto 2.4 % (0-4.4); Hematocrit 31.8 % (37.0-47.0); Hemoglobin 10.2 g/dL (12.0-15.0); Immature Granulocyte Absolute 0.12 K/mm3 (0.00-0.031); Immature Granulocyte Percent A 1.1 % (0-0.5); Lymphocytes Absolute Auto 2.25 K/mm3 (0.9-3.2); Lymphocytes Percent Auto 20.3 % (18.3-44.2); Mean Corpuscular HGB Conc 32.1 g/dl (32-36); Mean Corpuscular Hemoglobin 26.5 pg (26-34); Mean Corpuscular Volume 82.6 fl (80-100); Mean Platelet Volume 9.6 fl (7.4-10.4); Monocytes Absolute Auto 0.6 K/mm3 (0.1-0.6); Neutrophils Absolute Auto 7.9 K/mm3 (1.3-6.7); Neutrophils Percent Auto 70.8 % (45.5-73.1); Platelet Count Result 140 k/mm3 (150-375); Red Blood Count 3.85 M/mm3 (4.2-5.4); White Blood Count 11.1 K/mm3 (4.5-10.0)
--- NOTE | 2022-04-17 05:52 | LDADM ---
This patient, Carmen Nguyễn, was admitted to Labor/Delivery/Recovery 105 on 04/17/22 at 05:03. Plans for labor, pain management and were discussed with patient. Patient/family oriented to hospital policies and general routines including ID bracelet, bed and alarms, visiting hours, pain management, procedures, bathroom and other care routines, personal items, smoking policy, room service/diet and guest tray routines, security routines, and visiting hours. Patient/Family are encouraged to report perceived risks to care and to ask questions if they do not understand what they are told or what they should do. See OBIX for further documentation.
[2022-04-17] MEDS: miSOPROStol 25 MCG TABLET BY MOUTH (05:57)
--- NOTE | 2022-04-17 06:14 | WPDANESEPP ---
Anes - Eval Pre Procedure Procedure: Labor epidural Date/Time: 04/17/22 06:14 Surgeon: Ambrosio Preop Diagnosis: Pain during Labor Pre Op Diagnosis: IOL Patient Data Age: 27 Gender: F Height: 1.65 m Weight: 113.5 kg Last Vital Signs Temp 36.8 C 04/17/22 05:17 Pulse 99 04/17/22 05:58 Resp 18 04/17/22 05:17 BP 123/80 04/17/22 05:58 O2 Del Method Room Air 04/17/22 05:50 Allergies Allergy/AdvReac Type Severity Reaction Status Date / Time No Known Allergies Allergy Verified 04/17/22 06:14 Home Medications Medication Instructions Recorded Confirmed Type albuterol 90 mcg/actuation aerosol 90 mcg inhalation PRN PRN Adequate 02/27/21 03/17/21 History inhaler Ventilation mometasone 220 mcg/actuation(30 220 mcg inhalation DAILY 02/27/21 03/17/21 History doses) breath activated powder inhaler (Asmanex Twisthaler) montelukast 10 mg tablet 10 mg PO DAILY 02/27/21 03/17/21 History ferrous sulfate 140 mg (45 mg 140 mg PO BID 03/10/21 03/17/21 History iron) tablet,extended release prenat.vits,jennifer,gwp-bmwc-qyegs 1 tablet PO DAILY 03/10/21 03/17/21 History ibuprofen 600 mg tablet 600 mg PO Q6H PRN Cramping #30 tabs 03/21/21 Rx nitrofurantoin 100 mg PO Q12H #14 caps 02/28/22 Rx monohydrate/macrocrystals 100 mg capsule (Macrobid) Laboratory Tests 04/17/22 04/17/22 04/17/22 05:13 05:13 05:13 WBC 11.1 K/mm3 H K/mm3 (4.5-10.0) RBC 3.85 M/mm3 L M/mm3 (4.2-5.4) Hgb 10.2 g/dL L g/dL (12.0-15.0) Hct 31.8 % L % (37.0-47.0) MCV 82.6 fl fl (80-100) MCH 26.5 pg pg (26-34) MCHC 32.1 g/dl g/dl (32-36) RDW 15.0 % H % (11.5-14.5) Plt Count 140 k/mm3 L k/mm3 (150-375) MPV 9.6 fl fl (7.4-10.4) Immature Gran % (Auto) 1.1 % H % (0-0.5) Neut % (Auto) 70.8 % % (45.5-73.1) Lymph % (Auto) 20.3 % % (18.3-44.2) [place] % (Auto) 5.0 % % (2.6-8.5) Eos % (Auto) 2.4 % % (0-4.4) Baso % (Auto) 0.4 % % (0.2-1.2) Lymph # (Auto) 2.25 K/mm3 K/mm3 (0.9-3.2) [place] # (Auto) 0.6 K/mm3 K/mm3 (0.1-0.6) Eos # (Auto) 0.3 K/mm3 K/mm3 (0-0.3) Baso # (Auto) 0.0 K/mm3 K/mm3 (0.0-0.1) Abs Immat Gran (auto) 0.12 K/mm3 H K/mm3 (0.00-0.031) Absolute Neuts (auto) 7.9 K/mm3 H K/mm3 (1.3-6.7) Absolute Nucleated RBC 0.0 K/mm3 K/mm3 (0.0-0.012) Nucleated RBC % 0.0 % % (0.0-0.2) RPR Pending Blood Type A Positive Antibody Screen Pending Patient hx anesthesia problems: none Family hx anesthesia problems: none Results Review: All pre-operative results and documents have been reviewed as part of the pre-operative evaluation. [facility] Past Medical History Medical History Asthma GERD (gastroesophageal reflux disease) Intrauterine Family History Family History Mother Lung cancer Father Hypertension Social History Social History Smoking status: Never smoker Second hand tobacco smoke exposure: No Substance use: never Lack of Transportation: No Lack of Food: Never True Current Housing: I Have Housing Concerned About Future Housing: No Difficulty Paying Gas/Electric Bills: No Difficulty Paying for Meds: No Currently Unemployed: No Education: Bachelor's Degree Difficulty w/ Childcare or Family Care: No Spiritual care concerns: No Exam Day of Procedure 04/17/22 06:14
--- NOTE | 2022-04-17 07:19 | WPDOBADMIT ---
Obstetrics - Admit Note Admission Note: record reviewed. No pertinent additions to the history and/or any subsequent changes in the physical findings that are not consistent with the expected course of the were found. IOL, cytotec, hx pp hemorrhage Additions to the history and/or subsequent changes in the physical findings follow. None.
[2022-04-17] MEDS: LACTATED RINGERS 1,000 ML 125 ML IV CONT ×3 (10:20→21:06)
[2022-04-17] MEDS: OXYTOCIN 30 UNITS/NS 500 ML 30 UNITS/500 ML BAG IV CONT (10:20)
--- NOTE | 2022-04-17 12:22 | PM.OBPNLAB ---
Pain Control Date/time seen: 04/17/22 12:22 SVE 2/50/-2 AROM small amount of clear odorless fluid
[2022-04-17 12:32] LABS: Rapid Plasma Reagin Non-Reactive (NonReactive)
--- NOTE | 2022-04-17 16:51 | WPDANESEPN ---
Anes - Epidural Procedure Note Date/Time: 04/17/22 16:51 Consent: I have discussed with the patient/family/POA, the placement of an epidural catheter and the use of epidural narcotic/local anesthetic for labor analgesia and/or postoperative pain management, including associated potential risks, benefits, complications and side effects. I have discussed alternative methods of labor analgesia and/or postoperative pain management. The patient/family/POA, understand(s) and wish(es) to proceed with epidural narcotic/local anesthetic for labor analgesia and/or postoperative pain management. Time-Out: A pre-procedural Time-Out was completed immediately before starting the procedure and confirmed: Patient Identification, Site, Procedure, Patient Position and the Availability of Requisite Equipment. Clinical Indications: Pain during labor Epidural Insertion Note Patient position: sitting Skin prep: chlorhexidine and sterile drape Needle: 17g Tuohy Catheter: 20g Unstyleted Technique: Loss of resistance. Level of insertion: L3/4 Catheter skin roxie (cm): 5 Length in epidural space (cm): 10 Skin anesthesia: lidocaine 1% Test dose: 1.5% Lidocaine with [id number] Epi and negative for subarachnoid Inj Time of test dose: 16:38 Observations: tolerated well Complications: none
[2022-04-17] MEDS: ONDANSETRON INJ 4 MG/2 ML VIAL IV PUSH (21:05)
[2022-04-18] VITALS (54 sets, daily range): BP systolic 79–219; BP diastolic 32–200; PULSE 97–232; RESP 16–18; TEMP 36.2–38.6; O2SAT 92–100
[2022-04-18] MEDS: ACETAMINOPHEN 500 MG TABLET 1000 MG PO (00:10)
[2022-04-18] MEDS: AMPICILLIN 2 GM/NS 100 ML 2 GM/100 ML BAG IVPB (00:10)
[2022-04-18] MEDS: miSOPROStol 200 MCG TABLET 1000 MCG RECTAL (01:10)
[2022-04-18] MEDS: METHYLERGONOVINE MALEATE 0.2 MG/ML VIAL IM (01:13)
[2022-04-18] MEDS: TRANEXAMIC ACID 1,000MG/ISO100 1,000 MG/100 ML BAG 200 MG IVPB (01:17)
[2022-04-18] MEDS: ONDANSETRON INJ 4 MG/2 ML VIAL IV PUSH (01:30)
--- NOTE | 2022-04-18 01:39 | PM.OBPRVD ---
OB - Delivery Note Procedure Delivery date: 04/18/22 Procedure: vaginal delivery Intrapartal Events: Other (maternal fever ) Induction method: AROM and Per Misoprostol Protocol Delivery monitor: External FHT, External Uterine and Internal Uterine Route of delivery: Episiotomy description: None Laceration Description: None Specimen: Yes Quantitative Blood Loss (ml): 1,200 Anesthesia type: Epidural Disposition: Floor [place] Baby Date of : 04/18/22 Time of : 01:05 Weeks of gestation at delivery: 40 Infant gender: Male Weight (pounds): 8 Weight (ounces): 4 presentation: vertex position: Right Occiput Anterior Placenta delivery description: Manual Removal Cord Vessel Description: 3 Vessels score one minute: 8 score five minutes: 9 Narrative: after manual removal of placenta, uterus boggy, cytotec, methergine, TXA, coyle catheter, second IV line, and bakri placed. Bakri at 250cc. bakri placement visualized by bedside US and bleeding slowed, uterus firm
[2022-04-18 01:43] LABS: Hematocrit 32.1 % (37.0-47.0); Hemoglobin 9.8 g/dL (12.0-15.0); Mean Corpuscular HGB Conc 30.5 g/dl (32-36); Mean Corpuscular Hemoglobin 26.4 pg (26-34); Mean Corpuscular Volume 86.5 fl (80-100); Mean Platelet Volume 9.5 fl (7.4-10.4); Platelet Count Result 138 k/mm3 (150-375); Red Blood Count 3.71 M/mm3 (4.2-5.4); Red Cell Distribution Width 14.9 % (11.5-14.5); White Blood Count 16.1 K/mm3 (4.5-10.0)
[2022-04-18 01:55] LABS: INR 1.1; Partial Thromboplastin Time 25.9 SECONDS (22.3-36.8); Prothrombin Time 13.4 Seconds (11.1-14.7)
[2022-04-18] MEDS: OXYTOCIN 30 UNITS/NS 500 ML 30 UNITS/500 ML BAG 999 UNITS IV CONT (02:16)
[2022-04-18] MEDS: OXYTOCIN 30 UNITS/NS 500 ML 30 UNITS/500 ML BAG 125 UNITS IV CONT (02:30)
[2022-04-18] MEDS: LACTATED RINGERS 1,000 ML 125 ML IV CONT (02:30)
--- NOTE | 2022-04-18 04:00 | OBPPTRN ---
Patient transferred to post room #287 via ( wheelchair ). Support person present. Oriented to unit, room, information board, rooming in, admission packet and security measures. Patient verbalizes understanding.
[2022-04-18] MEDS: GENTAMICIN SULFATE INJ 400 MG in DEXTROSE 5% 100 ML 110 MG IVPB (04:25)
[2022-04-18] MEDS: CLINDAMYCIN 900 MG/D5W 50 ML 900 MG/50 ML PIGGYBACK 50 MG IVPB ×3 (04:26→20:18)
[2022-04-18] MEDS: IBUPROFEN 600 MG TABLET PO ×2 (04:51→17:50)
[2022-04-18] MEDS: ZOLPIDEM TARTRATE (*CRX) 5 MG TABLET PO (04:51)
[2022-04-18] MEDS: AMPICILLIN 1 GM/NS 50 ML 1 GM/50 ML BAG IVPB ×5 (07:10→23:33)
[2022-04-18] MEDS: POLYSACCHARIDE IRON COMPLEX 150 MG CAPSULE PO ×2 (07:23→17:50)
[2022-04-18] MEDS: DOCUSATE SODIUM 100 MG CAPSULE PO ×2 (07:23→17:50)
[2022-04-18 07:55] LABS: Hematocrit 25.9 % (37.0-47.0); Hemoglobin 8.1 g/dL (12.0-15.0); Mean Corpuscular HGB Conc 31.3 g/dl (32-36); Mean Corpuscular Hemoglobin 25.9 pg (26-34); Mean Corpuscular Volume 82.7 fl (80-100); Mean Platelet Volume 9.4 fl (7.4-10.4); Platelet Count Result 113 k/mm3 (150-375); Red Blood Count 3.13 M/mm3 (4.2-5.4); Red Cell Distribution Width 14.6 % (11.5-14.5); White Blood Count 21.2 K/mm3 (4.5-10.0)
[2022-04-18] MEDS: FLUTICASONE PROP 44 MCG (*SP) 10.6 GM 2 PUFF INHALATION ×2 (10:13→21:45)
[2022-04-18] MEDS: MONTELUKAST SODIUM 10 MG TABLET PO (10:14)
[2022-04-18] MEDS: ACETAMINOPHEN 325 MG TABLET 650 MG PO (10:14)
--- NOTE | 2022-04-18 15:09 | PM.OBPNVD ---
OB - PN: Subj Subjective Date/time seen: 04/18/22 15:09 Bakri removed without difficulty, 250cc out of the balloon. coyle catheter removed, pt tolerated well. fundus firm OB - PN: Obj Data Labs 04/18/22 07:45 Labs: Laboratory Results - last 24 hr 04/18/22 04/18/22 04/18/22 01:39 01:39 07:45 WBC 16.1 H 21.2 H RBC 3.71 L 3.13 L Hgb 9.8 L 8.1 L Hct 32.1 L 25.9 L MCV 86.5 82.7 MCH 26.4 25.9 L MCHC 30.5 L 31.3 L RDW 14.9 H 14.6 H Plt Count 138 L 113 L MPV 9.5 9.4 PT 13.4 INR 1.1 APTT 25.9 OB - PN A/P Time Spent With Patient Time: Total time spent is greater than 50% in coordination of care (as documented) at patient's floor/unit and/or counseling patient:
[2022-04-19] VITALS (15 sets, daily range): BP systolic 123–143; BP diastolic 60–95; PULSE 86–116; RESP 18; TEMP 36.1–36.7; O2SAT 95–99
[2022-04-19 05:13] LABS: Basophils Absolute Auto 0.1 K/mm3 (0.0-0.1); Basophils Percent Auto 0.5 % (0.2-1.2); Eosinophils Absolute Auto 0.3 K/mm3 (0-0.3); Eosinophils Percent Auto 2.6 % (0-4.4); Hematocrit 23.5 % (37.0-47.0); Hemoglobin 7.3 g/dL (12.0-15.0); Immature Granulocyte Absolute 0.12 K/mm3 (0.00-0.031); Immature Granulocyte Percent A 1.1 % (0-0.5); Lymphocytes Absolute Auto 1.73 K/mm3 (0.9-3.2); Lymphocytes Percent Auto 15.9 % (18.3-44.2); Mean Corpuscular HGB Conc 31.1 g/dl (32-36); Mean Corpuscular Hemoglobin 25.8 pg (26-34); Mean Platelet Volume 9.3 fl (7.4-10.4); Monocytes Absolute Auto 0.6 K/mm3 (0.1-0.6); Monocytes Percent Auto 5.8 % (2.6-8.5); Neutrophils Absolute Auto 8.1 K/mm3 (1.3-6.7); Neutrophils Percent Auto 74.1 % (45.5-73.1); Platelet Count Result 148 k/mm3 (150-375); Red Blood Count 2.83 M/mm3 (4.2-5.4); Red Cell Distribution Width 14.9 % (11.5-14.5); White Blood Count 10.9 K/mm3 (4.5-10.0)
--- NOTE | 2022-04-19 07:46 | PM.OBPNVD ---
OB - PN: Subj Subjective Date/time seen: 04/19/22 07:46 s/p vaginal delivery day 1, pt desires to go home, hemoglobin 7.3 this am. no complaints, feeling good. OB - PN: Obj Data Labs 04/19/22 04:33 Labs: Laboratory Results - last 24 hr 04/18/22 04/19/22 04/19/22 07:45 04:33 04:33 WBC 21.2 H 10.9 H RBC 3.13 L 2.83 L Hgb 8.1 L 7.3 L Cancelled Hct 25.9 L 23.5 L Cancelled MCV 82.7 83.0 MCH 25.9 L 25.8 L MCHC 31.3 L 31.1 L RDW 14.6 H 14.9 H Plt Count 113 L 148 L MPV 9.4 9.3 Immature Gran % (Auto) 1.1 H Neut % (Auto) 74.1 H Lymph % (Auto) 15.9 L [place] % (Auto) 5.8 Eos % (Auto) 2.6 Baso % (Auto) 0.5 Lymph # (Auto) 1.73 [place] # (Auto) 0.6 Eos # (Auto) 0.3 Baso # (Auto) 0.1 Abs Immat Gran (auto) 0.12 H Absolute Neuts (auto) 8.1 H Absolute Nucleated RBC 0.0 Nucleated RBC % 0.0 OB - PN A/P Assessment and Plan (1) Vaginal delivery: Code(s): O80 - Encounter for full-term uncomplicated delivery Status: Acute (2) Pre-eclampsia affecting , antepartum: Code(s): O14.90 - Unspecified pre-eclampsia, unspecified trimester Status: Inactive (3) Asthma: Code(s): J45.909 - Unspecified asthma, uncomplicated Status: Acute (4) Anemia: Code(s): D64.9 - Anemia, unspecified Status: Acute Plan plan blood transfusion, if h/h rises and asymptomatic may be discharged home this evening. Plan day: 1 Plan: routine care and discharge home Time Spent With Patient Time: Total time spent is greater than 50% in coordination of care (as documented) at patient's floor/unit and/or counseling patient: Review of Systems Review of Systems: All systems reviewed & are unremarkable except as noted in HPI and below Exam Const: General: cooperative, healthy appearing and comfortable
--- NOTE | 2022-04-19 08:12 | PM.OBDSVD ---
DS: Admitting Diagnosis Discharge Date 04/19/22 Admitting Diagnosis IOL DS: Discharge Diagnosis Discharge Diagnosis (1) Vaginal delivery: Code(s): O80 - Encounter for full-term uncomplicated delivery Status: Acute (2) Asthma: Code(s): J45.909 - Unspecified asthma, uncomplicated Status: Acute OB - DS: Summary OB Procedures : None OB Procedures Intrapartum: Spontaneous Vag Delivery OB Procedures: : None Time Spent with Patient Time attestation: Total time spent providing and/or coordinating discharge services: DS: Data Data Completed and Pending Labs on day of discharge: Labs from last 24 hours 04/19/22 04/19/22 04:33 04:33 WBC 10.9 H RBC 2.83 L Hgb Cancelled 7.3 L Hct Cancelled 23.5 L MCV 83.0 MCH 25.8 L MCHC 31.1 L RDW 14.9 H Plt Count 148 L MPV 9.3 Immature Gran % (Auto) 1.1 H Neut % (Auto) 74.1 H Lymph % (Auto) 15.9 L [place] % (Auto) 5.8 Eos % (Auto) 2.6 Baso % (Auto) 0.5 Lymph # (Auto) 1.73 [place] # (Auto) 0.6 Eos # (Auto) 0.3 Baso # (Auto) 0.1 Abs Immat Gran (auto) 0.12 H Absolute Neuts (auto) 8.1 H Absolute Nucleated RBC 0.0 Nucleated RBC % 0.0 Discharge Plan Discharge Attending physician on discharge: Estee Valente Consulting providers: Amara Arroyo Discharging Clinician: Amara Arroyo Patient Disposition: Home, Self-Care Activity: pelvic rest Diet: regular Patient Instructions: Antibiotic Form Stand Alone Forms: General Discharge Information Follow-up/Referrals: Amara Arroyo CNM [Certified Nurse Building Dismantler] - 4 Weeks Discharge Medications: Continued prenat.vits,jennifer,ohs-dyad-yrkae Tablet 1 tablet PO DAILY ferrous sulfate 140 mg (45 mg iron) Tablet Extended Release 140 mg PO BID ibuprofen 600 mg Tablet 600 mg PO Q6H PRN (Reason: Cramping) Qty: 30 0RF montelukast 10 mg tablet 10 mg PO DAILY albuterol 90 mcg/actuation Aerosol 90 mcg INHALATION PRN PRN (Reason: Adequate Ventilation) Asmanex Twisthaler 220 mcg/ actuation (30) aerosol powdr breath activated 220 mcg INHALATION DAILY Discontinued nitrofurantoin monohyd/m-cryst [Macrobid] 100 mg Capsule 100 mg PO Q12H Qty: 14 0RF Rx Instructions: must administer with a meal/food Date of admission: 04/17/22 05:03 Primary Care Provider: PHYSICIAN,EQUIPMENT SERVICE ASSOCIATE Admitting Provider: Estee Valente Attending physician on admission: Estee Valente Condition: Stable
[2022-04-19] MEDS: FLUTICASONE PROP 44 MCG (*SP) 10.6 GM 2 PUFF INHALATION (09:37)
[2022-04-19] MEDS: DOCUSATE SODIUM 100 MG CAPSULE PO ×2 (09:38→18:49)
[2022-04-19] MEDS: MONTELUKAST SODIUM 10 MG TABLET PO (09:38)
[2022-04-19] MEDS: POLYSACCHARIDE IRON COMPLEX 150 MG CAPSULE PO ×2 (09:38→18:49)
[2022-04-21 11:06] VITALS: BP 134/84; PULSE 84; RESP 20; TEMP 36.6; O2SAT 98
== END 2022-04-19 23:55 | disposition home or self-care (01) | DRG 768 ==
LOC: ANHLDR 05:05 → ANHOB2 04-18 04:09
PROVIDERS: Advanced Practice Midwife; Admitting Provider Obstetrics & Gynecology; Visit Provider Obstetrics & Gynecology
DX: O75.2 Pyrexia during labor, not elsewhere classified (principal); Z37.0 Single live birth; O14.94 Unspecified pre-eclampsia, complicating childbirth; Z3A.40 40 weeks gestation of pregnancy; J45.909 Unspecified asthma, uncomplicated; O99.52 Diseases of the respiratory system complicating childbirth
CPT/HCPCS: 36415; 36430; 85014; 85018; 85025; 85027; 85610; 85730; 86592; 86850; 86900; 86901; 86922; 88307; A9270; J0131; J0290; J1580; J2210; J2405; J2590; J2795; J7120; P9016